=== PATIENT | female | born 1965 | race Caucasian/White ===

== ENCOUNTER 2020-07-18 15:07 | Outpatient (CLI) | payer OTHER, SELFPAY ==
--- NOTE | ~2020-07-18 | XR_ITS ---
XR knee LT 2V DATE: 07/18/2020 15:48 INDICATION: Scleroderma. Chronic generalized left knee pain. No injury. TECHNIQUE: AP and lateral views COMPARISON: 02/13/2014 bilateral knees FINDINGS: No fracture or dislocation, periosteal reaction or bone destruction, joint space narrowing, radiopaque interarticular loose body or chondrocalcinosis or joint effusion. IMPRESSION: No significant abnormality Reviewed, dictated and finalized at location B. IMPRESSION: No significant abnormality
--- NOTE | ~2020-07-18 | XR_ITS ---
XR knee RT 2V DATE: 07/18/2020 15:48 INDICATION: Scleroderma. Chronic generalized knee pain. TECHNIQUE: AP and lateral views COMPARISON: 02/13/2014 bilateral knees FINDINGS: Diffuse osteopenia. No fracture or dislocation or joint effusion. No periosteal reaction or bone destruction. No radiopaq ue interarticular loose body or chondrocalcinosis. Joint spaces are relatively preserved. IMPRESSION: Osteopenia Reviewed, dictated and finalized at location B. IMPRESSION: Osteopenia
--- NOTE | ~2020-07-18 | CT_ITS ---
EXAMINATION:CT lung screening DATE: 07/18/2020 15:29 INDICATION: Personal history of tobacco dependence. Current smoker with 30 pack year history. TECHNIQUE: Computed tomography (CT) of the chest was performed without intravenous contrast. Automate d exposure control and iterative reconstruction technique were employed. The dose-length product (DLP ) was 162.70 mGy-cm. COMPARISON: Chest CT 01/17/2016 FINDINGS: There is mild emphysema. There is mild atelectasis in the inferior lungs. Again seen is a 3 mm nodule in left lower lobe. Again seen is a 4 mm nodule in left upper lobe. Again seen is a 4 mm n odule in right upper lobe. No pleural effusion. The heart size is normal. There are coronary artery c alcifications. No pericardial effusion. There is a chronic 2.4 cm mass in right adrenal gland measuri ng low-attenuation, consistent with an adenoma. There is mild thoracic spondylosis. IMPRESSION: 1. Lung-RADS category 2: Benign appearance or behavior. Continue annual screening with noncontrast lo w-dose chest CT in 12 months. Reviewed, dictated and finalized at location A. IMPRESSION: 1. Lung-RADS category 2: Benign appearance or behavior. Continue annual screeni ng with noncontrast low-dose chest CT in 12 months.
--- NOTE | ~2020-07-18 | XR_ITS ---
XR lumbar spine 2-3V DATE: 07/18/2020 15:48 INDICATION: Chronic generalized low back pain. Scleroderma. TECHNIQUE: AP, lateral, coned lateral lumbosacral views COMPARISON: None FINDINGS: There is severe degenerative disc disease including severe loss of disc space height, vacuu m phenomenon, eventration and spurring at L5-S1. There is mild to moderate degenerative disc disease at the remaining lumbar interspaces. Degenerative change at the apophyseal joints. Diffuse osteopenia. Minimal levoscoliosis of the thoracolumbar spine. No fracture or bone destruction or spondylolisthesis. The lumbar pedicles are intact. The sacroiliac joints appear normal. Status post cholecystectomy. IMPRESSION: Severe degenerative disc disease at L5-S1, mild to moderate degenerative disease at the r emaining interspaces Degenerative change at the facet joints but no spondylolisthesis Osteopenia Mild thoracolumbar levoscoliosis Reviewed, dictated and finalized at location B. IMPRESSION: Severe degenerative disc disease at L5-S1, mild to moderate degener ative disease at the remaining interspaces Degenerative change at the facet joints but no spondylolisthesis Osteopenia Mild thoracolumbar levoscoliosis
--- NOTE | ~2020-07-18 | XR_ITS ---
XR_CERV2-3V_CR DATE: 07/18/2020 15:48 INDICATION: C7 level neck pain, pain between shoulder blades. TECHNIQUE: Lateral, AP, open-mouth, odontoid views COMPARISON: None FINDINGS: Diffuse osteopenia. Straightening of the cervical spine. C1 and C2 are normally aligned and the odontoid process is intact. No fracture or dislocation or locked facet or prevertebral soft tissue swelling. There is moderately prominent loss of disc space height and anterior spurring at C6-7 consistent with moderate degenerative disc disease. IMPRESSION: Straightening Moderately prominent degenerative disc disease at C6-7 Osteopenia Reviewed, dictated and finalized at Location A. Reviewed, dictated and finalized at location B.
== END 2020-07-18 15:08 | disposition home or self-care (01) ==
PROVIDERS: PCP Family Medicine; Referring Provider Internal Medicine Rheumatology; Visit Provider Nurse Practitioner Family
DX: M34.9 Systemic sclerosis, unspecified (principal); M25.50 Pain in unspecified joint; M85.88 Other specified disorders of bone density and structure, other site; I73.00 Raynaud's syndrome without gangrene; Z79.899 Other long term (current) drug therapy; Z87.891 Personal history of nicotine dependence; Z12.2 Encounter for screening for malignant neoplasm of respiratory organs; M51.36 Other intervertebral disc degeneration, lumbar region; M50.323 Other cervical disc degeneration at C6-C7 level; M85.861 Other specified disorders of bone density and structure, right lower leg
CPT/HCPCS: 71271; 72040; 72100; 73560

== ENCOUNTER 2020-11-07 14:49 | Outpatient (CLI) | payer OTHER, SELFPAY ==
--- NOTE | 2020-11-07 15:30 | ECHO_ITS ---
Patient Info Name: Kelsey Armendariz Age: 54 years : 1965 Gender: Female Ht: 62 in Wt: 189 lbs BSA: 1.98 m2 HR: 78 bpm BP: 120 / 74 mmHg Heart Rhythm: Sinus Rhythm Technical Quality: Good Exam Date: 11/07/2020 3:24 PM Exam Location: [facility] Patient Status: Outpatient Admit Date: 11/07/2020 Staff Ordering Physician: ToniaJami MD Safe And Vault Mechanic: Yuliet Ko RDCS Attending Provider: Jami Fam MD Referring Physician: Tonia KIM; Exam Type: CA echo doppler color flow Study Info Indications - RAYNAUDS SYNDROME SCLERODERMA Complete two-dimensional, color flow and Doppler transthoracic echocardiogram is performed. Summary 1. Complete two-dimensional, color flow and Doppler transthoracic echocardiogram is performed. 2. Left ventricular systolic function is normal, estimated at 65-70%. 3. The left ventricular diastolic function is grade II diastolic dysfunction. 4. Borderline pulmonary hypertension, estimated pulmonary arterial systolic pressure is 37 mmHg. 5. No significant valve disease. 6. Normal sinus rhythm. Left Ventricle Left ventricular chamber dimension is normal. Left ventricular systolic function is normal, estimated at 65-70%. There is no increased left ventricular wall thickness. Left ventricular septal wall motion is normal. The left ventricular diastolic function is grade II diastolic dysfunction. Right Ventricle Right ventricular chamber dimension is normal. Right ventricular systolic function is normal. Left Atria Left atrial chamber dimension is normal. Right Atria Right atrial chamber dimension is normal. Aortic Valve The aortic valve is trileaflet. There is no aortic valve sclerosis. There is no aortic valve stenosis. There is no aortic valve regurgitation. Pulmonic Valve The pulmonic valve is normal. There is no pulmonic valve stenosis. There is trace pulmonic regurgitation. Mitral Valve The mitral valve has normal leaflets. There is no mitral valve stenosis. There is trace mitral valve regurgitation. Tricuspid Valve The tricuspid valve leaflets are normal. There is no significant tricuspid valve stenosis. There is trace tricuspid valve regurgitation. Borderline pulmonary hypertension, estimated pulmonary arterial systolic pressure is 37 mmHg. Pericardium/Pleural The pericardium appears normal. There is no pericardial effusion. Inferior Vena Cava Normal inferior vena cava with >50% collapse upon inspiration consistent with Empty right atrial pressure, 10 mmHg. Aorta The aortic root size at the sinus of Valsalva is normal. The prox ascending aorta size is normal. Left Ventricular Outflow Tract Name Value Normal LVOT 2D LVOT Diameter 2.0 cm LVOT Doppler LVOT Peak Gradient 5 mmHg LVOT Mean Gradient 3 mmHg LVOT VTI 23 cm LVOT VTI/AV VTI Ratio 1.0 LVOT Stroke Volume 76 ml LVOT CO 15.7 l/min LVOT CI
== END 2020-11-07 14:50 | disposition home or self-care (01) ==
LOC: ANHCARD 14:53
PROVIDERS: PCP Family Medicine; Visit Provider Internal Medicine Rheumatology
DX: I51.9 Heart disease, unspecified (principal); M34.9 Systemic sclerosis, unspecified
CPT/HCPCS: 73120; 93306

== ENCOUNTER 2020-11-07 16:14 | Outpatient (CLI) | payer OTHER, SELFPAY ==
--- NOTE | ~2020-11-07 | XR_ITS ---
XR hand RT 2V, XR hand LT 2V 11/07/2020 16:34 Indication: Bilateral hand pain Procedure: 2 views each hand Comparison: No prior studies for comparison. Findings: There is mild polyarticular osteoarthritis primarily involving the interphalangeal joints. No fracture, subluxation or dislocation. No significant soft tissue abnormality. No foreign body. Impression: 1: Mild polyarticular osteoarthritis. Reviewed, dictated and finalized at location A. Impression: 1: Mild polyarticular osteoarthritis. Impression: 1: Mild polyarticular osteoarthritis.
== END 2020-11-07 16:15 | disposition home or self-care (01) ==
LOC: ANHIMG 16:18
PROVIDERS: PCP Family Medicine; Visit Provider Internal Medicine Rheumatology
DX: M19.042 Primary osteoarthritis, left hand (principal); M19.041 Primary osteoarthritis, right hand
CPT/HCPCS: 73120

== ENCOUNTER 2021-05-07 15:21 | Outpatient (CLI) | payer OTHER, SELFPAY ==
--- NOTE | ~2021-05-07 | XR_ITS ---
EXAMINATION: XR wrist RT min 3V DATE: 05/07/2021 15:35 INDICATION: Pain near the right thumb. Synovitis/tenosynovitis. TECHNIQUE: Posteroanterior, ulnar deviation, oblique, and lateral views of the right wrist were obtai celia. COMPARISON: 11/07/2020 FINDINGS: Alignment is normal. No fracture. Mild osteoarthritis at the distal radioulnar and a few of the metac arpophalangeal joints. No erosions to suggest an inflammatory arthritis. Soft tissues are unremarkabl e. IMPRESSION: 1. Mild osteoarthritis at the distal radioulnar and a few of the metacarpophalangeal joints. Reviewed, dictated and finalized at location A. COMMUNICATIONS SWITCH TECHNICIAN IMPRESSION: 1. Mild osteoarthritis at the distal radioulnar and a few of the metacarpophala ngeal joints.
== END 2021-05-07 15:22 | disposition home or self-care (01) ==
PROVIDERS: PCP Family Medicine; Visit Provider Nurse Practitioner Adult Health
DX: M65.9 Synovitis and tenosynovitis, unspecified (principal); M19.031 Primary osteoarthritis, right wrist
CPT/HCPCS: 73110

== ENCOUNTER 2021-06-04 14:18 | Outpatient (CLI) | payer OTHER, SELFPAY ==
--- NOTE | 2021-06-04 16:30 | P.PCNPFT_ITS ---
PFT Procedure Performed PFT Procedure Performed Plethysmography (Lung Vol) Diffusing Cap (DLCO) Flow Vol Loop Spirometry w/o Bronchodil PFT Interpretation This is a pulmonary function test with spirometry, plethysmography and diffusing capacity. The test was performed and results interpreted in accordance with the 2019 and 2005 ATS/ERS Task Force guidelines respectively using the Global Lung Function Initiative-2012 reference equations. Patient demonstrated good effort and cooperation. Reproducibility criteria were met. The quality of the spirometry maneuver was Grade A. Findings: Spirometry: There is decreased maximal expiratory airflow at low lung volumes with a concaved expiratory flow tracing. the contour the inspiratory flow tracing is normal. The FVC is 2.73 L, 90% predicted. The FEV1 is 1.74 L, 72% predicted. The FEV1: FVC ratio 64%. Plethysmography: The total lung capacity is 4.71 L, 100% predicted. The functional residual capacity is 2.52 L, 95% predicted. The residual volume is 1.97 L, 110% predicted. Diffusing capacity: The diffusion capacity unadjusted for hemoglobin and car boxyhemoglobin is 10.9, 51% predicted. The diffusing capacity adjusted for alveolar volume is 3.17 L, 69% predicted. In comparison to previous pulmonary function test on 10/13/2018 the pre broncho dilator FVC is unchanged from 2.83 L to 2.73 L. The pre bronchodilator FEV1 is unchanged from 1.99 L to 1.74 L. The total lung capacity is unchanged from 4.69 L to 4.71 L. The functional residual capacity is unchanged from 2.58 L to 2.52 L. The residual volume is unchanged from 1.86 L to 1.97 L. The diffusing capacity unadjusted for hemoglobin and carboxyhemoglobin is decreased from 14.7 to 10.7. The diffusing capacity adjusted for alveolar volume is unchanged from 3.35 to 3.17. Impression: There is a mild obstructive abnormality. The lung volumes are normal. The diffusing capacity unadjusted for hemoglobin is moderately decreased and remains mildly decreased when adjusted for alveolar volume. In comparison to prior pulmonary function testing on 10/13/2018, there has been a greater than anticipated time dependent decrease in the diffusing capacity unadjusted for hemoglobin and carboxyhemoglobin with no significant change in the FVC, FEV1, total lung capacity, functional residual capacity, residual volume or diffusion capacity adjusted for alveolar volume. Clinical correlation is recommended.
== END 2021-06-04 14:19 | disposition home or self-care (01) ==
LOC: ANHPFT 14:21
PROVIDERS: PCP Family Medicine; Visit Provider Internal Medicine Rheumatology
DX: M34.9 Systemic sclerosis, unspecified (principal); R94.2 Abnormal results of pulmonary function studies
CPT/HCPCS: 94375; 94726; 94729

== ENCOUNTER 2021-08-01 13:16 | Outpatient (CLI) | payer OTHER, SELFPAY ==
--- NOTE | ~2021-08-01 | CT_ITS ---
EXAMINATION: CT lung screening DATE: 08/01/2021 13:40 INDICATION: Z87.891 - Personal history of nicotine dependence TECHNIQUE: Computed tomography (CT) of the chest was performed without intravenous contrast. Addition al 3D reconstructions utilizing coronal maximum intensity projection (MIP) were performed. Automated exposure control and iterative reconstruction technique were employed. The dose-length product was 11 4.98 mGy-cm. COMPARISON: 07/18/2020 FINDINGS: Mild emphysema. Linear discoid atelectasis along the basilar lower lobes. Unchanged elongated 3 mm in the anterior infrahilar left lower lobe and 3 mm nodules in the anteroinferior left upper lobe. Unch anged 4 mm groundglass nodule in the posterior segment of the left upper lobe. No new or enlarging pu lmonary nodules. No pneumonia, pulmonary edema or pleural effusion. Heart size is normal. Atheroscler otic coronary artery calcific location. No pericardial or pleural effusion. Thoracic aorta is normal in caliber. No pathologically enlarged thoracic lymphadenopathy. Cholecystectomy clips the gallbladde r fossa. Unchanged 2.3 cm low-attenuation right adrenal adenoma. Visualized upper abdomen is otherwi se unremarkable. Mild to moderate thoracic spondylosis. IMPRESSION: 1. . Lung-RADS category 2: Benign appearance or behavior. Continue annual screening with noncontrast low-dose chest CT in 12 months. Reviewed, dictated and finalized at location B. IMPRESSION: 1. . Lung-RADS category 2: Benign appearance or behavior. Continue annual scree toshia with noncontrast low-dose chest CT in 12 months.
== END 2021-08-01 13:17 | disposition home or self-care (01) ==
PROVIDERS: PCP Family Medicine; Visit Provider Physician Assistant
DX: Z12.2 Encounter for screening for malignant neoplasm of respiratory organs (principal); Z87.891 Personal history of nicotine dependence
CPT/HCPCS: 71271

== ENCOUNTER 2021-09-17 12:30 | Outpatient (RCR) | payer OTHER, SELFPAY ==
--- NOTE | 2021-06-26 16:06 | OTOPEVAL ---
OCCUPATIONAL THERAPY INITIAL EVALUATION REPORT 06/26/21 Thank you for referring Kelsey Armendariz to [facility].? The patient is scheduled to be seen for therapy? 1x/week for 4 weeks. Please review, sign, date and return this plan of care ALBERTO. I agree with and certify that the following plan of care is medically necessary. Referring Physician Date Referring Provider: Andrew Perry MD *OT Outpatient Evaluation Start: 06/26/21 13:12 Therapy Assessment Status Assessment Status Assessment Status Evaluation Evaluation Information Problem Diagnosis Right wrist pain Onset Mar 2021 Subjective Information Patient reports right wrist Query Text:As Reported By Patient/ pain, pointing to her 1st Family dorsal compartment. She reports pain with gripping, lifting, and opening jars. She has been wearing a neoprene wrist brace. The thumb is free in the brace. Pain Assessment Timing of Pain Assessment Timing of Pain Assessment Assessment Pain Scale Pain Scale Used Numeric (1 - 10) Self Report Pain Assessment Right Wrist(s) Reported Pain Level 1 Pain Description Aching Lowest Pain Intensity 0 Greatest Pain Intensity 9 Pain Score Pain Score 1: Self Report Interventions Used Interventions Used By Clinicians Education,Splinting Upper Extremity Range of Motion General Upper Extremity Range of Motion Reason Not Measured WFL/Left Gross Upper Extremity Range of Motion (+) pain with thumb maximal Comments flexion and extension Special Tests-Upper Extremity Wrist Special Tests Manjit's Positive Right Splint/Brace/Cast Assessment Splint and Bracing Assessment Right Thumb Fabrication Clinician Made Splint/Brace/Cast Type Thumb Spica (Long) Reason For Splint/Brace/Cast Optimal Positioning,Pain Management,Support Joint/ Muscle Schedule As Tolerated Schedule Comments Patient to remove for bathing and exercises. Site Condition Intact Tolerance Tolerates Well Manual Therapy Manual Therapy Treatment Comments Educated patient on use of Query Text:Include Technique and heat, massage, and ice for her Result of Technique home program. OT Clinical Summary OT Clinical Summary Patient referred to outpatient hand therapy with signs and symptoms of De Quervain's tenosynovitis. Today a well fitt
--- NOTE | 2021-07-08 09:59 | PCOTNOTE ---
Patient called & cancelled scheduled appointment this date due to not feeling well.
--- NOTE | 2021-07-26 14:35 | OTOPEVAL ---
OCCUPATIONAL THERAPY RE-EVALUATION REPORT 07/26/21 Patient presents for OT evaluation of right wrist pain, consistent with De Quervain's tenosynovitis. She has been immobilizing the wrist x4 weeks, however she had increased pain with wearing custom, thermoplastic thumb spica. This unfortunately set us back due to increased pain and tenderness at the inflammed area. She has been compliant with all materials. She continues to have reports of severe pain and limited functional use of the right hand. She plans to follow up with an orthopedic MD for a steroid injection and we will continue therapy visits to help facilitate reduced pain, improved ROM, and return to functional use. Plan to increase to 2x/week as 1x/week was not meeting her needs pain-kahn. Thank you for referring Kelsey Armendariz to [facility].? The patient is scheduled to be seen for therapy? 2x/week for 4 weeks. Please review, sign, date and return this plan of care ALBERTO. I agree with and certify that the following plan of care is medically necessary. Referring Physician Date Referring Provider: Andrew Perry MD Re-Evaluation Information Problem Diagnosis Right wrist pain Onset Mar 2021 Subjective Information Patient reports no functional Query Text:As Reported By Patient/ changes since beginning Family therapy. She has been wearing a neoprene wrist brace, could not tolerate a thermoplastic brace due to discomfort. She is seeing an orthopedic MD next week and will be requesting a steroid injection. QuickDash 50% Pain Assessment Timing of Pain Assessment Timing of Pain Assessment Re-assessment Pain Scale Pain Scale Used Numeric (1 - 10) Self Report Pain Assessment Right Wrist(s) Reported Pain Level 2 Pain Description Aching,Soreness Lowest Pain Intensity 1 Greatest Pain Intensity 9 Pain Aggravating Factors Exercise/Activity,Lifting Pain Score Pain Score 2: Self Report Additional Pain Score Comments Patient states when she uses her right arm to lift items she will intermittently get 9 /10 shooting pains. On a regular basis she has 2/10 at rest. Interventions Used Interventions Used By Clinicians Education,Exercise,Manual Therapy Techniques,Paraffin Pain Relief Interventions Used By Heat,Ice Patient Other Alleviating Interventions Biofreeze, Voltaren Upper Extremity Range of Motion Wrist Range of Motion Right Wrist Flexion - Active 65 Wrist Extension - Active 40 Wrist Radial Deviation - Active 10 Wrist Ulnar Deviation - Active 25 Wrist Range of Motion Comments (+)
--- NOTE | 2021-08-15 11:00 | PCOTNOTE ---
Patient called & cancelled scheduled appointment this date, stating she just can't make it today .
--- NOTE | 2021-08-30 12:54 | OTOPEVAL ---
OCCUPATIONAL THERAPY RE-EVALUATION AND POC UPDATE 08/30/21 Patient presents for OT evaluation of right wrist pain, consistent with De Quervain's tenosynovitis. She has been immobilizing the wrist x9 weeks and also had a steroid injection. At this time she is having significantly less pain with functional use. She is tolerating progressive strengthening, but continues to have residual weakness that limits her ability to wean off of the immobilizer and return to normal hand use. Continued skilled OT indicated to progress functional strengthening as tolerated. Thank you for referring Kelsey Armendariz to [facility]Note 3[facility]? The patient is scheduled to be seen for therapy? 1x/week for 4 weeks. Please review, sign, date and return this plan of care ALBERTO. I agree with and certify that the following plan of care is medically necessary. Referring Physician Date Referring Provider: Andrew Perry MD *OT Outpatient Re-Evaluation Start: 06/26/21 13:12 Diagnosis Right wrist pain Onset Mar 2021 Subjective Information Patient reports that since Query Text:As Reported By Patient/ receiving a steroid injection Family her pain has been significantly less. She walked in today with no pain. We have been able to do more exercises in the clinic and she is tolerating more activity at home with and without the wrist immobilizer on. She states that light tasks are much easier, but reports continued difficulties with heavier tasks such as opening a jar or lifting a gallon of milk. QuickDash improved from 50% to 27.3% Pain Assessment Timing of Pain Assessment Timing of Pain Assessment Re-assessment Pain Scale Pain Scale Used Numeric (1 - 10) Self Report Pain Assessment Right Wrist(s) Reported Pain Level 0 Lowest Pain Intensity 0 Greatest Pain Intensity 8 Pain Score Pain Score 0: Self Report Additional Pain Score Comments Patient states she will get quick zings of pain if she lifts items, such as a gallon of milk, utilizing radial deviation with resistance. She states that the pain subsides much quicker than it did before. Otherwise she typically has no pain at rest or very low pain, rating 1-2/ 10. Interventions Used Interventions Used By Clinicians
--- NOTE | 2021-09-26 14:32 | PCOTNOTE ---
This treatment is being continued on visit number [id number]. Please see documentation on both accounts to view progress. Completed interventions, outcomes, and problems have been marked as Inactive to facilitate the copying of the Care plan routine for recurring accounts.
== END 2021-09-24 08:21 | disposition home or self-care (01) ==
LOC: ANHOT 12:30
PROVIDERS: PCP Family Medicine; Visit Provider Family Medicine
DX: M25.531 Pain in right wrist (principal)
CPT/HCPCS: 97018; 97035; 97110; 97140; 97165; L3806

== ENCOUNTER 2021-09-27 06:49 | Outpatient (RCR) | payer OTHER, SELFPAY ==
--- NOTE | 2021-09-26 14:33 | PCOTNOTE ---
The treatment documented on this account is a continuation of the treatment documented on visit number [id number]. Please see documentation on both accounts to view progress. The Plan of Care has been transitioned and updated within the new V#. I have addressed and agree with the discipline specific Problems, Interventions, and Goals for the current certification period. Completed interventions, outcomes, and problems have been marked as Inactive to facilitate the copying of the Care plan routine for recurring accounts.
--- NOTE | 2021-09-27 11:46 | OTOPEVAL ---
OCCUPATIONAL THERAPY RE-EVALUATION AND D/C NOTE 09/26/21 Patient presents for OT evaluation of right wrist pain, consistent with De Quervain's tenosynovitis. She has been immobilizing the wrist and also had a steroid injection. At this time she is having significantly less pain with functional use. She is tolerating progressive strengthening and is only wearing her immobilizer with any heavy lifting. At this time she feels confident in being able to wean out of her brace independently as she gets stronger with her HEP. No further skilled OT indicated at this time. Thank you for referring Kelsey Armendariz to [facility]. Please review, sign, date and return this D/C Note ALBERTO. I agree with and certify that the following plan of care is medically necessary. Referring Physician Date Referring Provider: Andrew Perry MD Re-Evaluation Information Problem Diagnosis Right wrist pain Onset Mar 2021 Subjective Information Patient reporting less pain Query Text:As Reported By Patient/ and is weaning out of the Family immobilizer. She only wears the immobilizer when driving or doing any heavy lifting. She continues to be unable to open a jar due to pain and fear of reinjuring the area. Does get some residual soreness after using her hand at work. QuickDash improved from 27.3% to 25% Pain Assessment Timing of Pain Assessment Timing of Pain Assessment Re-assessment Pain Scale Pain Scale Used Numeric (1 - 10) Self Report Pain Assessment Right Wrist(s) Reported Pain Level 0 Lowest Pain Intensity 0 Greatest Pain Intensity 2 Pain Score Pain Score 0: Self Report Additional Pain Score Comments Regularly has no pain. Does intermittently get up to a 2/10. Gets a quick zing of pain, up to 8/10, but quickly subsides, when trying to open a jar. Upper Extremity Range of Motion Wrist Range of Motion Right Wrist Flexion - Active 65 Wrist Extension - Active 75 Wrist Radial Deviation - Active 25 Wrist Ulnar Deviation - Active 35 Wrist Range of Motion Comments Wrist active ROM returned to normal limits. Hand Patient Accounts Clerk/Pinch Strength Assessment Hand Right Patient Accounts Clerk Strength (lbs) 59 Hand Patient Accounts Clerk/Pinch Strength Comments Improved from 54 lbs. 9-Hole Peg Hand Test Hand Right Scoring Time (seconds) 32 Comments Improved from 35 seconds Upper Extremity Exercise Wrist Exercise Righ
== END 2021-12-11 10:51 | disposition home or self-care (01) ==
LOC: ANHOT 06:49
PROVIDERS: PCP Family Medicine; Visit Provider Family Medicine
DX: M25.531 Pain in right wrist (principal)
CPT/HCPCS: 97110

== ENCOUNTER 2021-10-08 16:02 | Outpatient (CLI) | payer OTHER, SELFPAY ==
--- NOTE | ~2021-10-08 | MM_ITS ---
EXAMINATION: MM screening nick BI w link HISTORY: Screening mammogram TECHNIQUE: Craniocaudal and mediolateral oblique 3-D tomosynthesis images were obtained and synthetic 2-D images were generated. CAD analysis was submitted and interpreted. COMPARISON: 07/29/2018, 01/19/2015 BREAST PARENCHYMAL COMPOSITION: There are scattered areas of fibroglandular density. FINDINGS: Again noted is stable focal asymmetry in the upper outer quadrant of the left breast. There is no suspicious mass, calcification, or architectural distortion to suggest malignancy in either br east. There has been no suspicious interval change. IMPRESSION: 1. No mammographic evidence of malignancy. 2. Recommend routine screening mammography in one year. BI-RADS Category 2: Benign finding(s). Reviewed, dictated and finalized at location A.
--- NOTE | ~2021-10-08 | DEXA_ITS ---
Bone Density Report Name: CHRISTOPH GO Age: 55 Sex: Female Ethnicity: White Date of : 1965 Indication: postmenopausal; screening for osteoporosis; height loss; asthma or emphysema; Referring Provider: CHEPE, DANIEL Benjamin Study: Bone densitometry was performed. Exam Date: October 08, 2021 Accession number: [id number] Bone Density: Region BMD T-score Z-score Classification AP Spine(L1-L4) 0.837 -1.9 -0.7 Osteopenia Femoral Neck (Left) 0.621 -2.1 -0.9 Osteopenia Total Hip (Left) 0.806 -1.1 -0.3 Osteopenia Femoral Neck (Right) 0.618 -2.1 -1.0 Osteopenia Total Hip (Right) 0.770 -1.4 -0.6 Osteopenia Total Hip Mean 0.788 -1.3 -0.5 Osteopenia World Health Organization criteria for BMD impression classify patients as: Normal (T-score at or above -1.0), Osteopenia (T-score between -1.0 and -2.5), or Osteoporosis (T-score at or below -2.5). 10-year Fracture Risk(1): Major Osteoporotic Fracture 8.0% Hip Fracture 1.5% Reported Risk Factors: [place] (), Neck BMD=0.621, BMI=37.0, smoking (1) FRAX(R) Version 3.08. Fracture probability calculated for an untreated patient. Fracture probability may be lower if the patient has received treatment. Clinical Information Provided by Patient: Smokes Has used the following medications: Vitamin D Has the following medical conditions: Asthma or Emphysema Patient maximum height was 62 Menopause Age: 47 No regular weight bearing exercise Drinks caffeinated beverages Onset of menses at age 11 Number of children 0 Impression: The patient has low bone mass, based on the Left Femoral Neck T-score. The patient has an estimated ten-year risk of hip fracture of 1.5% and an estimated ten-year risk of major fracture of 8%, based on the WHO FRAX algorithm. The patient has risk factors, including: smoking. Discussion: BONE DENSITY IS LOW AT ONE OR MORE SKELETAL SITES. This patient's lowest T-score is low at one or more skeletal sites. It meets the World Health Organization's (WHO) criteria for ?low bone mass? (T-score between -1.0 and -2.5). The patient's 10-year risk of fracture as calculated by FRAX is less than the threshold where pharmacological therapy is recommended by the National Osteoporosis Foundation (NOF). However, all treatment decisions require clinical judgment and consideration of individual patient factors, including patient preferences, comorbidities, previous drug use, risk factors not captured in the FRAX model (e.g., frailty, falls, vitamin D deficiency, increased bone turnover, interval significant decline in bone density) and possible under or overestimation of fracture risk by FRAX. The patient should follow a healthful lifestyle (good nutrition with adequate calcium and vitamin D, and appropriate weight-bearing exercise). Fo
== END 2021-10-08 16:03 | disposition home or self-care (01) ==
PROVIDERS: PCP Family Medicine; Visit Provider Internal Medicine Rheumatology
DX: Z12.31 Encounter for screening mammogram for malignant neoplasm of breast (principal); M85.88 Other specified disorders of bone density and structure, other site; M85.852 Other specified disorders of bone density and structure, left thigh; M85.851 Other specified disorders of bone density and structure, right thigh
CPT/HCPCS: 77063; 77067; 77080

== ENCOUNTER 2022-06-11 02:24 | Day surgery (SDC) | payer MEDICARE, MEDICAID, SELFPAY ==
[2022-02-25 11:13] VITALS: BMI 35.7
[2022-04-18 13:39] VITALS: BMI 35.7
--- NOTE | 2022-05-02 10:27 | PC.NURSE ---
pt called endoscopy department 3.. later afternoon and left a VM asking if she could have something to drink before her procedure. pt was called back 3.. around 7am and was left a voicemail about anesthesia protocols and to callback if necessary. pt was then called around 10am to see if she could come in earlier. pt was unhappy that she was not contacted sooner and could not have something to drink. pt then stated she wanted to reschedule. pt given office number to contact.
[2022-05-27 13:31] VITALS: BMI 35.7
[2022-06-11 10:23] VITALS: BP 131/74; PULSE 83; RESP 17; TEMP 36; O2SAT 98; BMI 36.4
--- NOTE | 2022-06-11 10:32 | WPDANESEPPF ---
Anes - Initial Pre Proc Eval Procedure: Operation Date: 06/11/22 11:30 Proposed Procedures p Esophagogastroduodenoscopy - Rachid Boogie MD Date/Time: 06/11/22 10:32 Surgeon: Rachid Boogie MD Pre Op Diagnosis: Baretts' esophagus Patient Data Age: 56 Gender: F Height: 1.57 m Weight: 90.4 kg Last Vital Signs Temp 36.0 C L 06/11/22 10:23 Pulse 83 06/11/22 10:23 Resp 17 06/11/22 10:23 BP 131/74 06/11/22 10:23 Pulse Ox 98 06/11/22 10:23 O2 Del Method Room Air 06/11/22 10:23 Allergies Allergy/AdvReac Type Severity Reaction Status Date / Time No Known Allergies Allergy Verified 06/11/22 10:22 Home Medications Medication Instructions Recorded Confirmed Type artifi.tears(hypromellose)(PF) 0.3 1 drop ophthalmic (eye) DAILY PRN 03/01/19 06/11/22 History % eye drops Dry Eyes atorvastatin 20 mg tablet 20 mg PO DAILY 03/01/19 06/11/22 History cyclosporine 0.05 % eye drops in a 1 drop ophthalmic (eye) Q12H 03/01/19 06/11/22 History dropperette (Restasis) diazepam 2 mg tablet 2 mg PO TID PRN Anxiety 03/01/19 06/11/22 History ergocalciferol (vitamin D2) 50,000 500,000 unit PO WEEKLY 03/01/19 06/11/22 History unit tablet meloxicam 15 mg tablet 15 mg PO DAILY 03/01/19 06/11/22 History montelukast 10 mg tablet 10 mg PO DAILY 03/01/19 06/11/22 History cyclobenzaprine 10 mg tablet 10 mg PO .COMPLEX 12/03/21 06/11/22 History omeprazole 20 mg capsule,delayed 40 mg PO DAILY 12/03/21 06/11/22 History release albuterol sulfate 90 mcg/actuation See Rx Instructions .Route 03/12/22 06/11/22 Rx aerosol inhaler .COMPLEX #8.5 grams budesonide-formoterol HFA 160 See Rx Instructions .Route 05/30/22 06/11/22 Rx mcg-4.5 mcg/actuation aerosol .COMPLEX #10.2 grams inhaler (Symbicort) Other studies: Echo/MUGA:: 11/07/21 Echo: EF 65-70%, grade II diastolic dysfunction. Echo (EF 60-65%, grade III diastolic dysfunction (E/E' 9), mild LAE, mild MR, trace AI/TR.) - 09/07/2017 Electrophysiology:: EKG (Sinus rhythm, borderline T wave in ant/inf leads) - 10/13/2018 Stress Tests:: 12/09/18 Stress echo: Negative for ischemia, however achieved only 79% MPHR for age group; exercised for 3 min, 33 seconds. Patient hx anesthesia problems: none Family hx anesthesia problems: none Results Review: All pre-operative results and documents have been reviewed as part of the pre-operative evaluation. [facility] Past Medical History Medical History Arthritis Asthma Alejandra esophagus Chronically dry eyes Colon cancer screening COPD (chronic obstructive pulmonary disease) Elevated lipids GERD (gastroesophageal reflux disease) Headache, migraine History of trigger finger Scleroderma TMJ (temporomandibular joint syndrome) Surgical History Surgical History History of cholecystectomy Family History Family History Sibling Family history of kidney stones Father Family history of malignant neoplasm of esophagus Other Family history of chronic obstructive pulmonary disease Social History Social History Smoking packs per day: 0.5 Smoking cigarettes per day: 10.0 Years smoked: 35 Smoking pack-years: 17.50 Smoking status: Current every day smoker Alcohol intake: current Alcohol use details: social Substance use: never Substance use type: does not use Living arrangements: with family Anes - Evobed Final PreProcedure Day of Procedure 06/11/22 10:32 Patient weight: obese Heart: regular rate and rhythm Lungs: clear to auscultation and normal air movement Airway: Mallampati scale class II Neurological: alert and oriented Last oral intake: >/= 8 hours ASA classification: III Emergent: no Anesthetic plan: proceed Anesthesia type and
[2022-06-11] MEDS: LACTATED RINGERS 1,000 ML 150 ML IV CONT (10:33)
--- NOTE | 2022-06-11 10:42 | PM.HPGS ---
History of Present Illness History of Present Illness Consent: Risks, benefits, and alternatives have been discussed and questions answered. Patient agrees to proceed with procedure. Chief complaint: Baretts' esophagus Narrative: Kelsey Armendariz is a 56 year old female with miller's on omeprazole for years, last egd by Dr Bledsoe over 3 years ago, for the most part well controlled with ppi. Review of Systems Constitutional: Constitutional: Denies headache(s) and Denies weakness Eyes: Eyes: Denies blurry vision ENT: Reports Normal hearing present, Denies headache(s) and Denies neck pain Cardiovascular: Cardiovascular: Denies chest pain and Denies dyspnea Respiratory: Respiratory: Denies dyspnea Gastrointestinal: Gastrointestinal: Reports no additional gastrointestinal complaints Genitourinary: Genitourinary: Denies dysuria Musculoskeletal: Musculoskeletal: Denies neck pain Integumentary/Breasts: Skin/Breast: Denies dry skin Neurologic: Reports Normal hearing present, Denies headache(s) and Denies weakness Psychiatric: Psychiatric: Denies anxiety Endocrine: Endocrine: Denies change in body appearance Hematologic/Lymphatic: Hematologic/Lymphatic: Denies easy bleeding Allergic/Immunologic: Allergic/Immunologic: Denies urticaria PMFSH Past Medical History Medical History Arthritis Asthma Miller esophagus Chronically dry eyes Colon cancer screening COPD (chronic obstructive pulmonary disease) Elevated lipids GERD (gastroesophageal reflux disease) Headache, migraine History of trigger finger Scleroderma TMJ (temporomandibular joint syndrome) Surgical History Surgical History History of cholecystectomy Family History Family History Sibling Family history of kidney stones Father Family history of malignant neoplasm of esophagus Other Family history of chronic obstructive pulmonary disease Social History Social History Smoking packs per day: 0.5 Smoking cigarettes per day: 10.0 Years smoked: 35 Smoking pack-years: 17.50 Smoking status: Current every day smoker Alcohol intake: current Alcohol use details: social Substance use: never Substance use type: does not use Living arrangements: with family Meds Home Medications and Allergies Home Medications Medication Instructions Recorded Confirmed Type artifi.tears(hypromellose)(PF) 0.3 1 drop ophthalmic (eye) DAILY PRN 03/01/19 06/11/22 History % eye drops Dry Eyes atorvastatin 20 mg tablet 20 mg PO DAILY 03/01/19 06/11/22 History cyclosporine 0.05 % eye drops in a 1 drop ophthalmic (eye) Q12H 03/01/19 06/11/22 History dropperette (Restasis) diazepam 2 mg tablet 2 mg PO TID PRN Anxiety 03/01/19 06/11/22 History ergocalciferol (vitamin D2) 50,000 500,000 unit PO WEEKLY 03/01/19 06/11/22 History unit tablet meloxicam 15 mg tablet 15 mg PO DAILY 03/01/19 06/11/22 History montelukast 10 mg tablet 10 mg PO DAILY 03/01/19 06/11/22 History cyclobenzaprine 10 mg tablet 10 mg PO .COMPLEX 12/03/21 06/11/22 History omeprazole 20 mg capsule,delayed 40 mg PO DAILY 12/03/21 06/11/22 History release albuterol sulfate 90 mcg/actuation See Rx Instructions .Route 03/12/22 06/11/22 Rx aerosol inhaler .COMPLEX #8.5 grams budesonide-formoterol HFA 160 See Rx Instructions .Route 05/30/22 06/11/22 Rx mcg-4.5 mcg/actuation aerosol .COMPLEX #10.2 grams inhaler (Symbicort) Allergies Allergy/AdvReac Type Severity Reaction Status Date / Time No Known Allergies Allergy Verified 06/11/22 10:22 Vital Signs Vital Signs - 24 hr 06/11/22 10:23 Temperature 96.8 F L Pulse Rate 83 Respiratory Rate 17 Blood Pressure 131/74 Pulse Oximetry 98 Oxygen Delivery Room Air Exam Const:
[2022-06-11 10:53] VITALS: BP 139/79; PULSE 85; RESP 28; O2SAT 90
[2022-06-11 11:03] VITALS: BP 111/67; PULSE 81; RESP 22; O2SAT 96
[2022-06-11 11:13] VITALS: BP 97/65; PULSE 71; RESP 21; O2SAT 95
== END 2022-06-11 11:29 | disposition home or self-care (01) ==
PROVIDERS: PCP Family Medicine; Visit Provider Internal Medicine Gastroenterology
PROC: 0DJ08ZZ Inspection of Upper Intestinal Tract, Via Natural or Artificial Opening Endoscopic (ICD-10-PCS; CPT 43235; principal; 2022-06-11 11:30)
DX: K22.70 Barrett's esophagus without dysplasia (principal); K21.9 Gastro-esophageal reflux disease without esophagitis; K44.9 Diaphragmatic hernia without obstruction or gangrene; J44.9 Chronic obstructive pulmonary disease, unspecified; Z79.51 Long term (current) use of inhaled steroids; F17.210 Nicotine dependence, cigarettes, uncomplicated; E66.9 Obesity, unspecified; Z68.36 Body mass index [BMI] 36.0-36.9, adult
CPT/HCPCS: 43239; 88305; J2704; J7120

== ENCOUNTER 2022-10-28 09:14 | Outpatient (CLI) | payer MEDICARE, MEDICAID, SELFPAY ==
--- NOTE | ~2022-10-28 | MM_ITS ---
EXAMINATION: MM screening [facility] BI w link HISTORY: Screening mammogram TECHNIQUE: Craniocaudal and mediolateral oblique 3-D tomosynthesis images were obtained and synthetic 2-D images were generated. CAD analysis was submitted and interpreted. COMPARISON: 10/08/2021, 07/29/2018, 01/19/2015 BREAST PARENCHYMAL COMPOSITION: There are scattered areas of fibroglandular density. FINDINGS: No suspicious mass, calcification, or architectural distortion are identified in either jessica ast to suggest malignancy. There has been no suspicious interval change. IMPRESSION: 1. No mammographic evidence of malignancy. 2. Recommend routine screening mammography in one year. BI-RADS Category 1: Negative Reviewed, dictated and finalized at location A.
== END 2022-10-28 09:15 | disposition home or self-care (01) ==
PROVIDERS: PCP Family Medicine; Visit Provider Nurse Practitioner Adult Health
DX: Z12.31 Encounter for screening mammogram for malignant neoplasm of breast (principal)
CPT/HCPCS: 77063; 77067

== ENCOUNTER 2022-10-30 12:48 | Outpatient (CLI) | payer MEDICARE, MEDICAID, SELFPAY ==
--- NOTE | ~2022-10-30 | CT_ITS ---
CT Scan of the Chest without Contrast: Clinical Indication: Lung cancer screening, personal history of nicotine dependence Technique: Contiguous sections were acquired throughout the chest without intravenous contrast. Dose reduction technique was used on this scan by utilizing automated exposure control and iterative recon struction technique. The dose-length product (DLP) was 145.64 mGy-cm. COMPARISON: 08/01/2021 and 07/18/2020 Findings: There is no evidence of any significant mediastinal, hilar or axillary lymphadenopathy. Coronary ash ry calcifications are noted. There is no evidence of pleural or pericardial effusion. Stable subcentimeter pulmonary nodules noted. Probable mild emphysema. Images through the upper abdomen reveal stable right adrenal adenoma. Impression: Lung RADS 2: Benign appearance. 12 month follow-up screening CT advised. Reviewed, dictated and finalized at [facility]. Impression: Lung RADS 2: Benign appearance. 12 month follow-up screening CT advised.
== END 2022-10-30 12:49 | disposition home or self-care (01) ==
LOC: ANHIMG 12:52
PROVIDERS: PCP Family Medicine; Visit Provider Physician Assistant
DX: Z12.2 Encounter for screening for malignant neoplasm of respiratory organs (principal); Z87.891 Personal history of nicotine dependence
CPT/HCPCS: 71271

== ENCOUNTER 2023-01-05 13:00 | Outpatient (CLI) | payer MEDICARE, MEDICAID, SELFPAY ==
--- NOTE | 2023-01-05 16:22 | WPDPFTINT ---
PFT Procedure Performed PFT Procedure Performed Flow Vol Loop Spirometry w/o Bronchodil PFT Interpretation This is a pulmonary function test with spirometry. The test was performed and results interpreted in accordance with the 2019 and 2005 ATS/ERS Task Force guidelines respectively using the Global Lung Function Initiative-2012 reference equations. Patient demonstrated good effort and cooperation. Reproducibility criteria were met. The quality of the spirometry maneuver was Grade A. Findings: Spirometry: There is decreased maximal expiratory airflow at all lung volumes with concave expiratory flow tracing. The contour the inspiratory flow tracing is normal. The FVC is 2.59 L, 87% predicted. The FEV1 is 1.61 L, 68% predicted. The FEV1: FVC ratio 62%. In comparison to prior spirometry on 06/04/2021 the FVC is unchanged from 2.73 L to 2.59 L. The FEV1 is unchanged from 1.74 L to 1.61 L. Impression: There is a moderate obstructive abnormality. A concurrent restrictive abnormality cannot be excluded as lung volumes were not measured. In comparison to prior spirometry on 06/04/2021 there has been no significant change in the FVC or FEV1. Clinical correlation is recommended.
== END 2023-01-05 13:01 | disposition home or self-care (01) ==
LOC: ANHPFT 13:02
PROVIDERS: PCP Family Medicine; Visit Provider Nurse Practitioner Adult Health
DX: J44.9 Chronic obstructive pulmonary disease, unspecified (principal); R06.09 Other forms of dyspnea; R94.2 Abnormal results of pulmonary function studies
CPT/HCPCS: 94375

== ENCOUNTER 2023-05-29 14:43 | Outpatient (CLI) | payer MEDICARE, MEDICAID, SELFPAY ==
--- NOTE | 2023-05-29 | ECHO_ITS ---
Patient Info Name: Kelsey Armendariz Age: 57 years : 1965 Gender: Female Ht: 62 in Wt: 185 lbs BSA: 1.95 m2 HR: 82 bpm BP: 128 / 86 mmHg Technical Quality: Good Exam Date: 05/29/2023 2:57 PM Exam Location: Echo Lab Patient Status: Outpatient Admit Date: 05/29/2023 Staff Ordering Physician: ToniaJami MD Shellacker: Alina Cleary RDCS Attending Provider: Loree*Jami MD Referring Physician: Tonia KIM; Exam Type: CA echo doppler color flow Study Info Indications - scleroderma Complete two-dimensional, color flow and Doppler transthoracic echocardiogram is performed. Summary 1. Complete two-dimensional, color flow and Doppler transthoracic echocardiogram is performed. 2. Left ventricular chamber dimension is normal. 3. Left ventricular systolic function is normal, estimated at 65-70%. 4. The left ventricular diastolic function is grade I diastolic dysfunction. 5. E/e' 13 is mildly elevated. Left Ventricle E/e' 13 is mildly elevated. Left ventricular chamber dimension is normal. Left ventricular systolic function is normal, estimated at 65-70%. The left ventricular diastolic function is grade I diastolic dysfunction. Right Ventricle Right ventricular chamber dimension is normal. Right ventricular systolic function is normal. Left Atria Left atrial chamber dimension is normal. Right Atria Right atrial chamber dimension is normal. Aortic Valve The aortic valve is trileaflet. There is no aortic valve stenosis. There is no aortic valve regurgitation. Pulmonic Valve There is no pulmonic regurgitation. Mitral Valve There is no mitral valve stenosis. There is no mitral valve regurgitation. Tricuspid Valve There is no tricuspid valve regurgitation. Pericardium/Pleural There is no pericardial effusion. Inferior Vena Cava Normal inferior vena cava with >50% collapse upon inspiration consistent with normal right atrial pressure, 5 mmHg. Aorta The aortic root size at the sinus of Valsalva is normal. Left Ventricular Outflow Tract Name Value Normal LVOT 2D LVOT Diameter 2.0 cm LVOT Doppler LVOT Peak Gradient 5 mmHg LVOT Mean Gradient 3 mmHg LVOT VTI 23 cm LVOT VTI/AV VTI Ratio 1.0 LVOT Stroke Volume 74 ml LVOT CO 5.2 l/min LVOT CI 2.7 l/min/m2 Pulmonic Valve Name Value Normal RVOT Doppler RVOT Peak Gradient 3 mmHg PV Doppler PV Peak Gradient 3 mmHg Mitral Valve Name Value Normal MV Doppler ----
== END 2023-05-29 14:44 | disposition home or self-care (01) ==
LOC: ANHCARD 14:44
PROVIDERS: PCP Family Medicine; Visit Provider Internal Medicine Rheumatology
DX: M34.9 Systemic sclerosis, unspecified (principal); M54.2 Cervicalgia; I73.00 Raynaud's syndrome without gangrene; G89.29 Other chronic pain; M47.812 Spondylosis without myelopathy or radiculopathy, cervical region; M47.816 Spondylosis without myelopathy or radiculopathy, lumbar region; R07.9 Chest pain, unspecified
CPT/HCPCS: 93306

== ENCOUNTER 2023-09-08 14:50 | Outpatient (CLI) | payer MEDICARE, MEDICAID, SELFPAY ==
--- NOTE | 2023-09-08 16:02 | WPDPFTINT ---
PFT Procedure Performed PFT Procedure Performed Spirometry with Pre/Post Bronchodilator Plethysmography (Lung Vol) Diffusing Cap (DLCO) Flow Vol Loop PFT Interpretation This is a pulmonary function test with pre and post-bronchodilator spirometry, plethysmography and diffusing capacity. The test was performed and results interpreted in accordance with the 2019 and 2005 ATS/ERS Task Force guidelines respectively using the Global Lung Function Initiative-2012 reference equations. Patient demonstrated good effort and cooperation. Reproducibility criteria were met. The quality of the pre bronchodilator spirometry maneuver was Grade A and post bronchodilator spirometry maneuver was Grade A. Findings: Spirometry:There is decreased maximal expiratory airflow at low lung volumes with concave expiratory flow tracing. The contour the inspiratory flow tracing is normal. The pre bronchodilator FVC is 2.50 L, 84% predicted. The pre bronchodilator FEV1 is 1.57 L, 66% predicted. The pre bronchodilator FEV1: FVC ratio 63%. The post bronchodilator FVC is 2.62 L, representing a 5% increase. The post bronchodilator FEV1 is 1.66 L, representing a 5% increase. The post bronchodilator FEV1: FVC ratio 63%. Plethysmography: The total lung capacity is 4.80 L, 102% predicted. The functional residual capacity is 2.99 L, 113% predicted. The residual volume is 2.30 L, 125% predicted. Diffusing capacity: The diffusing capacity unadjusted for hemoglobin and carboxyhemoglobin is 12.7, 61% predicted. The diffusing capacity adjusted for alveolar volume is 3.50, 77% predicted. In comparison to previous pre bronchodilator spirometry on 01/05/2023 the pre bronchodilator FVC is unchanged from 2.59 L to 2.50 L. The pre bronchodilator FEV1 is unchanged from 1.61 L to 1.57 L. Impression: There is a moderate obstructive abnormality. There is no significant improvement after inhaling a single dose of albuterol. The lung volumes are normal. The diffusing capacity unadjusted for hemoglobin and carboxyhemoglobin is mildly decreased and normalizes when adjusted for alveolar volume. In comparison to previous spirometry on 01/05/2023, there has been no significant change in the FVC or FEV1. Clinical correlation is recommended.
== END 2023-09-08 14:51 | disposition home or self-care (01) ==
LOC: ANHCARD 14:51
PROVIDERS: PCP Family Medicine; Visit Provider Internal Medicine Rheumatology
DX: J44.9 Chronic obstructive pulmonary disease, unspecified (principal); M47.896 Other spondylosis, lumbar region; I73.00 Raynaud's syndrome without gangrene; M34.9 Systemic sclerosis, unspecified; G89.29 Other chronic pain; M47.812 Spondylosis without myelopathy or radiculopathy, cervical region; M47.816 Spondylosis without myelopathy or radiculopathy, lumbar region
CPT/HCPCS: 94060; 94726; 94729

== ENCOUNTER 2023-11-10 15:44 | Outpatient (CLI) | payer MEDICARE, MEDICAID, SELFPAY ==
--- NOTE | ~2023-11-10 | CT_ITS ---
EXAMINATION:CT lung screening DATE: 11/10/2023 16:01 INDICATION: Personal history of nicotine dependence. Current smoker with 30 pack year history. TECHNIQUE: Computed tomography (CT) of the chest was performed without intravenous contrast. Automate d exposure control and iterative reconstruction technique were employed. The dose-length product (DLP ) was 211.93 mGy-cm. COMPARISON: Chest CT 10/20/2022 FINDINGS: There is mild emphysema. There is a 3 mm nodule in right upper lobe. There is mild atelecta sis bilaterally. No pleural effusion. The heart size is normal. There are coronary artery calcificati ons. No pericardial effusion. There is a small sliding hiatal hernia. There is a 2.2 cm mass in right adrenal gland measuring low attenuation, consistent with an adenoma. There is moderate thoracic spon dylosis. IMPRESSION: 1. Lung-RADS category 2: Benign appearance or behavior. Continue annual screening with noncontrast lo w-dose chest CT in 12 months. Reviewed, dictated and finalized at location A. IMPRESSION: 1. Lung-RADS category 2: Benign appearance or behavior. Continue annual screeni ng with noncontrast low-dose chest CT in 12 months.
== END 2023-11-10 15:45 | disposition home or self-care (01) ==
LOC: ANHIMG 15:48
PROVIDERS: PCP Family Medicine; Visit Provider Physician Assistant
DX: Z12.2 Encounter for screening for malignant neoplasm of respiratory organs (principal); Z87.891 Personal history of nicotine dependence
CPT/HCPCS: 71271

== ENCOUNTER 2024-05-10 16:22 | Outpatient (CLI) | payer MEDICARE, MEDICAID, SELFPAY ==
--- NOTE | ~2024-05-10 | MM_ITS ---
EXAMINATION: MM screening [facility] BI w link HISTORY: Screening mammogram TECHNIQUE: Craniocaudal and mediolateral oblique 3-D tomosynthesis images were obtained and synthetic 2-D images were generated. CAD analysis was submitted and interpreted. COMPARISON: 10/28/2022, 10/08/2021, 07/29/2018 BREAST PARENCHYMAL COMPOSITION:Not Dense. There are scattered areas of fibroglandular density. FINDINGS: No suspicious mass, calcification, or architectural distortion are identified in either jessica ast to suggest malignancy. There has been no suspicious interval change. IMPRESSION: No mammographic evidence of malignancy. Recommend routine screening mammography in one year. BI-RADS Category 1: Negative Reviewed, dictated and finalized at location .
--- OUTSIDE RECORDS SUMMARY | 2024-05-10 18:05 | XMS_ITS | Clinical Summary ---
Author Organization [facility] [employer] Address [address] [place] [address] [place] [address] Care Team Providers Care Casino Enforcement Agent Name Role Phone Andrew Perry MD Primary Care Provider Source Comments [facility] [employer],non-owned Affiliates and Associated Physician Practices is amultiple site organization consisting of ambulatory clinics and hospital sitesin [place], [place], [place] and [place]. This disclosure is being madepursuant to the Care Everywhere program and may not contain all informatio navailable regarding this patient. Last updated 17.[facility] [employer] Allergies No known active allergies Medications * Be aware that medications may not be up to date on this document. Alwaysverify current medications with the patient. Medication Sig Dispensed Refills Start Date End Date Status cycloSPORINE (RESTASIS) 0.05 % ophthalmic suspension Instill 1 (one) drop into both eyes BID 05/08/2016 Active refresh (LACRI-LUBE) opthalmic ointment Instill 1 Each into both eyes 2 times daily 11 09/28/2015 Active montelukast (SINGULAIR) 10 MG tablet Take 1 (one) tablet by mouth Active atorvastatin (LIPITOR) 20 MG tablet Take 1 (one) tablet by mouth Active cyclobenzaprine (FLEXERIL) 10 MG tablet Take 0.5 (one-half) tablet by mouth Active CPAP Inhale 1 device by mouth Active SYMBICORT 160-4.5 MCG/ACT inhaler Inhale 160 Disk by mouth 2 times daily 4 10/28/2017 Active vitamin D, ergocalciferol, (DRISDOL) 71743 UNITS capsule Take 1 (one) capsule by mouth every 7 days 12/07/2017 Active MEENAKSHI CONTOUR NEXT TEST test strip 11/30/2017 Active MICROLET LANCETS MISC 10/14/2017 Act louise albuterol HFA (PROVENTIL;VENTOLIN;P ROAIR) 108 (90 Base) MCG/ACT inhaler Inhale 2 (two) puffs by mouth every 6 hours as needed 11/03/2020 Active diazePAM (VALIUM) 2 MG tablet Take 1 (one) tablet by mouth 3 times daily as needed 09/24/2020 Active meloxicam (MOBIC) 15 MG tablet Take 1 (one) tablet by mouth once daily Active omeprazole (PRILOSEC) 20 MG capsule Take 2 (two) capsules by mouth daily before breakfast Active diclofenac sodium (VOLTAREN) 1 % gel Apply 2 (two) g to affected area 4 times daily 2 gm amount for elbow, wrist or hand 4 gm amount for knee, ankle or foot 100 g 5 05/22/2021 Active doxycycline monohydrate 100 MG tablet Take 1 (one) tablet by mouth once daily 12/19/2022 Active erythromycin (Romycin) 5 MG/GM ophthalmic ointment 01/02/2023 Activ e albuterol (Proventil;Ventolin) (2.5 MG/3ML) 0.083% nebulizer solution 2.5 (two and one-half) mg 4 times daily as needed 10/29/2022 Active fluticasone-salmetero l (Advair/Wixela) 250-50 MCG/ACT inhaler Inhale 1 (one) puff by mouth 2 times daily 04/17/2023 Active Miebo 1.338 GM/ML ophthalmic solution Instill 1 (one) drop into both eyes 4 times daily 11/12/2023 Active Active Problems Problem Noted Date Diagnosed Date Encounter for long-term (cur rent) use of high-risk medication 12/14/2017 Trigger thumb of right hand 10/16/2015 Raynaud's syndrome without gangrene 01/23/2015 Asymptomatic menopausal state 12/14/2014 Other specified disorders of bone density and structure, unspecified site 08/07/2014 Nicotine dependence, uncomplicated 08/07/2014 Calcinosis, Raynaud phenomen on, esophageal dysfunction, sclerodactyly, 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 (F LUZONE; FLULAVAL; FLUARIX; AFLURIA QUADRIVALENT; 6MO+), 0.5 ML (IIV4) 12/14/2017 Family History Medical History Relation Name Comments None Known Brother Other Father Nishant hameed; Status: Alive None Known Mother Status: Alive Relation Name Status Comments Brother Father Mother Social History Tobacco Use Types Packs/Day Years Used Date Smoking Tobacco: Every Day Cigarettes 0.5 40.2 Started: 02/28/1984 Smokeless Tobacco: Never Tobacco Cessation:Ready to Q uit: Not Asked; Counseling Given: Not Answered Alcohol Use Standard Drinks/Week Comments Yes 0.8 (1 standard drink = 0.6 oz p ure alcohol) rarely PHQ-2 Answer Date Recorded PHQ2 TOTAL SCORE 0 06/10/2022 Sex and Gender Information Value Date Recorded Sex Assigned at Not on file Gender Identity Not on file Sexual Orientation Not on file Last Filed Vital Signs Vital Sign Reading Time Taken Comments Blood Pressure 122/70 11/17/2023 3:54 PM CDT Pulse 97 11/17/2023 3:54 PM CDT Temperature 36.6 C (97.8 F) 11/17/2023 3:54 PM CDT Respiratory Rate 18 06/02/2016 1:13 PM CDT Oxygen Saturation 94% 11/17/2023 3:54 PM CDT Inhaled Oxygen Concentration - - Weight 85.5 kg (188 lb 9.6 oz) 11/17/2023 3:54 P M CDT Height 157.5 cm (5' 2 ) 11/17/2023 3:54 PM CDT Body Mass Index 34.5 11/17/2023 3:54 PM CDT Plan of Treatment Upcoming Encounters Date Type Department Care Team (Late st Contact Info) Description 08/02/2024 3:00 PM CDT Office Visit [facility] - Rheumatology [address] [place] [address], [facility] [place] [address] Jami Merino MD [address] [place] [id number] Health Maintenance Due Date Last Done Comments COLOGUARD (AGES 45-75) - COLON CA SCREENING 1964 COLON MONITORING 1964 COLONOSCOPY - COLON CA SCREENING 1964 CT COLONOGRAPHY - COLON CA SCREENING 1964 Colorectal Cancer Screening 1964 FIT - COLON CA SCREENING 1964 FLEX SIG - COLON CA SCREENING 1964 MAMMOGRAM 1964 MEDICARE AWV 12 MONTHS 1964 PAP SMEAR 1964 HIV SCREENING 12/31/1979 DTAP/TDAP/TD VACCINES (1 - Tdap) 12/31/1983 HEPATITIS B VACCINE (1 of 3 - 19+ 3-dose series) 12/31/1983 PNEUMOCOCCAL VACCINE 50+ (1 of 2 - PCV) 12/31/1983 ZOSTER VACCINE (1 of 2) 2014 COVID-19 VACCINE (3 - season) 2023 06/05/2020, 05/14/2020 INFLUENZA VACCINE (#1) 2023 12/14/2017, 2013 DEPRESSION SCREENING 03/02/2024 06/10/2022, 07/31/19 22 SCREENING FOR DIABETES 06/09/2025 3, 04/12/2020, 04/20/2019, Additional history exists HEPATITIS C SCREENING Completed 03/06/2014 HIB VACCINE Aged Out No longer eligi ble based on patient's age to complete this topic HPV VACCINE Aged Out No longer eligi ble based on patient's age to complete this topic MENINGOCOCCAL (Group B) VACCINE Aged Out No longer eligible based on patient's age to complete this topic MENINGOCOCCAL VACCINE Aged Out No mike shi eligible based on patient's age to complete this topic Procedures Procedure Name Priority Date/Time Associated Diagnosis Comments COMPREHENSIVE METABOLIC PANEL Routine 06/09/2022 2:30 PM CDT Scleroderma (HCC) Raynaud's syndrome without gangrene Encounter for therapeutic drug monitoring HEPATITIS C ANTIBODY Routine 03/06/2014 11:36 AM LIBRARY CATALOGING TECHNICIAN from Last 3 Months or Most Recently Relevant to Health Maintenance Results * (ABNORMAL) COMPREHENSIVE METABOLIC PANEL (06/09/2022 2:30 PM CDT) Glucose 103(H) 65 - 99 mg/dL [facility] Comment: Fasting reference interval For someone without known diabetes, a glucose value between 100 and 125 mg/dL is consistent with prediabetes and should be confirmed with a follow-up test. BUN 10 7 - 25 mg/dL [facility] Creatinine 0.58 0.50 - 1.03 mg/dL [facility] eGFR by Cystatin C 105 > OR = 60 mL/min/1. 73m2 [facility] Comment: The eGFR is based on the CKD-EPI 2020 equation. To calculate the new eGFR from a previous Creatinine or Cystatin C result, go to https://www.kidney.org/professionals/ kdoqi/gfr%5Fcalculator BUN/Creatinine Ratio NOT APPLICABLE 6 - 22 (calc) [facility] Sodium 141 135 - 146 mmol/L [facility] Potassium 3.7 3.5 - 5.3 mmol/L [facility] Chloride 105 98 - 110 mmol/L [facility] CO2 27 20 - 32 mmol/L [facility] Calcium 8.6 8.6 - 10.4 mg/dL [facility] Protein Total 6.2 6.1 - 8.1 g/dL [facility] Albumin 4.1 3.6 - 5.1 g/dL [facility] Globulin Total 2.1 1.9 - 3.7 g/dL (calc) [facility] Albumin/Globuli n Ratio 2.0 1.0 - 2.5 (calc) [facility] Bilirubin Total 0.3 0.2 - 1.2 mg/dL [facility] Alkaline Phosphatase 64 37 - 153 U/L [facility] AST 14 10 - 35 U/L [facility] ALT 17 6 - 29 U/L [facility] Comment: Test Performed at: [facility] [employer] [id number] [place] [address] GERTRUDE GILMORE MD Blood BLOOD SPECIMEN / Unknown 06/09/2022 2:30 PM CDT 06/09/2022 2:31 PM CDT Jami Merino MD LAB - CHEMISTR Y ORDERABLES [facility] [id number] [place] [address] * HEPATITIS C ANTIBODY (03/06/2014 11:36 AM LIBRARY CATALOGING TECHNICIAN) Hepatitis C Antibody NON-REACTI VE NON-REACT [facility] ([facility]) Signal/Cutoff 0.02 <1.00 [facility]) Comment: Test Performed at: [facility] [place] [id number] [place] [address] ASHLY ZAPATA DO,MPH Blood specimen (specimen) BLOOD SPECIMEN / Unknown 03/06/2014 11:36 AM LIBRARY CATALOGING TECHNICIAN 03/06/2014 11:38 AM LIBRARY CATALOGING TECHNICIAN Jami Merino MD LAB - CHEMISTR Y ORDERABLES [facility]) from Last 3 Months or Most Recently Relevant to Health Maintenance Care Teams Casino Enforcement Agent Relationship Specialty Start Date End Date Andrew Perry MD [address] [place] [address] PCP - General 02/27/14
--- OUTSIDE RECORDS SUMMARY | 2024-05-10 18:05 | XMS_ITS | Patient Health Summary ---
Author Organization [facility] Address [address] [place] [address] [place] [address] Care Team Providers Care Auto Servicer Name Role Phone Andrew Perry MD Primary Care Provider [phone] Note from Formerly named [facility],non-owned Affiliates and Associated Physician Practices is amultiple site organization consisting of ambulatory clinics and hospital sitesin [place], [place], [place] and [place]. This disclosure is being madepursuant to the Care Everywhere program and may not contain all information available regarding this patient. Last updated 17.[facility] Allergies No known active allergies Medications * Be aware that medications may not be up to date on this document. Alwaysverify current medications with the patient. * cycloSPORINE (RESTASIS) 0.05 % ophthalmic suspension(Started 05/08/2016) Instill 1 (one) drop into both eyes BID * refresh (LACRI-LUBE) opthalmic ointment(Started 09/28/2015) Instill 1 Each into both eyes 2 times daily 11 refills left * montelukast (SINGULAIR) 10 MG tablet Take 1 (one) tablet by mouth * atorvastatin (LIPITOR) 20 MG tablet Take 1 (one) tablet by mouth * cyclobenzaprine (FLEXERIL) 10 MG tablet Take 0.5 (one-half) tablet by mouth * CPAP Inhale 1 device by mouth * SYMBICORT 160-4.5 MCG/ACT inhaler(Started 10/28/2017) Inhale 160 Disk by mouth 2 times daily 4 refills left * vitamin D, ergocalciferol, (DRISDOL) 03282 UNITS capsule(Started 12/07/2017) Take 1 (one) capsule by mouth every 7 days * MEENAKSHI CONTOUR NEXT TEST test strip(Started 11/30/2017) * MICROLET LANCETS MISC(Started 10/14/2017) * albuterol HFA (PROVENTIL;VENTOLIN;PROAIR) 108 (90 Base) MCG/ACT inhaler (Started 11/03/2020) Inhale 2 (two) puffs by mouth every 6 hours as needed * diazePAM (VALIUM) 2 MG tablet(Started 09/24/2020) Take 1 (one) tablet by mouth 3 times daily as needed * meloxicam (MOBIC) 15 MG tablet Take 1 (one) tablet by mouth once daily * omeprazole (PRILOSEC) 20 MG capsule Take 2 (two) capsules by mouth daily before breakfast * diclofenac sodium (VOLTAREN) 1 % gel(Started 05/22/2021) Apply 2 (two) g to affected area 4 times daily 2 gm amount for elbow, wrist or hand 4 gm amount forknee, ankle or foot 5 refills by 05/22/2022 * doxycycline monohydrate 100 MG tablet(Started 12/19/2022) Take 1 (one) tablet by mouth once daily * erythromycin (Romycin) 5 MG/GM ophthalmic ointment(Started 01/02/2023) * albuterol (Proventil;Ventolin) (2.5 MG/3ML) 0.083% nebulizer solution(Started 10/29/2022) 2.5 (two and one-half) mg 4 times daily as needed * fluticasone-salmeterol (Advair/Wixela) 250-50 MCG/ACT inhaler(Started 04/17/2023) Inhale 1 (one) puff by mouth 2 times daily * Miebo 1.338 GM/ML ophthalmic solution(Started 11/12/2023) Instill 1 (one) drop into both eyes 4 times daily Active Problems Problem Noted Date Diagnosed Date [...] 02/27/2014 Arthralgia of temporomandibular joint 02/27/2014 Immunizations * INFLUENZA VACCINE, QUADR. (FLUZONE; FLULAVAL; FLUARIX; AFLURIA QUADRIVALENT; 6MO+), 0.5 ML (IIV4)(Given 12/14/2017) Social History Tobacco Use Types Packs/Day Years [...] Mass Index 34.5 11/17/2023 3:54 PM CDT Procedures * KIT BLOOD TITER(Performed 01/07/2023) * RNA POLYMERASE III ANTIBODY IGG(Performed 01/07/2023) * HISTONE ANTIBODY(Performed 01/07/2023) * SS-B (SJOGREN'S) ANTIBODY(Performed 01/07/2023) * SS-A (SJOGREN'S) ANTIBODY(Performed 01/07/2023) * GOLDBERG (SM) ANTIBODY RODRIGUEZ(Performed 01/07/2023) * CHROMATIN ANTIBODY(Performed 01/07/2023) * FIBER DRIER OPERATOR ANTIBODY(Performed 01/07/2023) * CENTROMERE B ANTIBODIES(Performed 01/07/2023) * SCLERODERMA 70 (SCL) ANTIBODY(Performed 01/07/2023) * COMPLEMENT TOTAL(Performed 01/07/2023) * COMPLEMENT C4(Performed 01/07/2023) * COMPLEMENT C3(Performed 01/07/2023) * KIT BLOOD SCREEN W/REFLEX TITER(Performed 01/07/2023) * DNA ANTIBODY DS CRITHIDIA W/REFLEX TITER(Performed 01/07/2023) * CBC W AUTO DIFFERENTIAL(Performed 06/09/2022) Performed for Scleroderma (HCC), Raynaud's syndrome without gangrene, Encounter for therapeutic drug monitoring * URINALYSIS W/MICROSCOPIC REFLEX TO CULTURE(Performed 06/09/2022) Performed for Scleroderma (HCC), Raynaud's syndrome without gangrene, Encounter for therapeutic drug monitoring * ERYTHROCYTE SEDIMENTATION RATE(Performed 06/09/2022) Performed for Scleroderma (HCC), Raynaud's syndrome without gangrene, Encounter for therapeutic drug monitoring * C-REACTIVE PROTEIN(Performed 06/09/2022) Performed for Scleroderma (HCC), Raynaud's syndrome without gangrene, Encounter for therapeutic drug monitoring * COMPREHENSIVE METABOLIC PANEL(Performed 06/09/2022) Performed for Scleroderma (HCC), Raynaud's syndrome without gangrene, Encounter for therapeutic drug monitoring * CULTURE URINE(Performed 06/09/2022) * CULTURE URINE REFLEXED II(Performed 06/09/2022) * AZ US GUIDED NEEDLE PLACEMENT(Performed 07/30/2021) Performed for De Quervain's tenosynovitis, right * AZ INJ TENDON SHEATH/LIGAMENT/APONEUROSIS(Performed 07/30/2021) Performed for De Quervain's tenosynovitis, right * PFT(Performed 07/05/2021) * CARDIAC ECHOCARDIOGRAM COMPLETE ORDER(Performed 02/13/2021) * IMAGING/RADIOLOGY/XRAY RESULTS ORDER(Performed 11/27/2020) * IMAGING/RADIOLOGY/XRAY RESULTS ORDER(Performed 11/23/2020) * IMAGING/RADIOLOGY/XRAY RESULTS ORDER(Performed 07/31/2020) * IMAGING/RADIOLOGY/XRAY RESULTS ORDER(Performed 07/19/2020) * C-REACTIVE PROTEIN(Performed 04/12/2020) * CBC W AUTO DIFFERENTIAL(Performed 04/12/2020) * URINALYSIS W/MICROSCOPIC REFLEX TO CULTURE(Performed 04/12/2020) * ERYTHROCYTE SEDIMENTATION RATE(Performed 04/12/2020) * COMPREHENSIVE METABOLIC PANEL(Performed 04/12/2020) * CULTURE URINE REFLEXED I(Performed 04/12/2020) * SS-B (SJOGREN'S) ANTIBODY(Performed 10/24/2019) * SS-A (SJOGREN'S) ANTIBODY(Performed 10/24/2019) * GOLDBERG (SM) ANTIBODY RODRIGUEZ(Performed 10/24/2019) * FIBER DRIER OPERATOR ANTIBODY(Performed 10/24/2019) * SCLERODERMA 70 (SCL) ANTIBODY(Performed 10/24/2019) * COMPLEMENT C4(Performed 10/24/2019) * COMPLEMENT C3(Performed 10/24/2019) * KIT BLOOD TITER(Performed 10/24/2019) * KIT BLOOD SCREEN W/REFLEX TITER(Performed 10/24/2019) * HISTONE ANTIBODY(Performed 10/24/2019) * DNA ANTIBODY DS CRITHIDIA W/REFLEX TITER(Performed 10/24/2019) * URINALYSIS W/MICROSCOPIC REFLEX TO CULTURE(Performed 04/20/2019) Performed for Osteopenia of spine, Scleroderma (HCC), Raynaud's syndrome without gangrene, Encounter for long-term (current) use of high-risk medication, Encounter for therapeutic drug monitoring * ERYTHROCYTE SEDIMENTATION RATE(Performed 04/20/2019) Performed for Osteopenia of spine, Scleroderma (HCC), Raynaud's syndrome without gangrene, Encounter for long-term (current) use of high-risk medication, Encounter for therapeutic drug monitoring * C-REACTIVE PROTEIN(Performed 04/20/2019) Performed for Osteopenia of spine, Scleroderma (HCC), Raynaud's syndrome without gangrene, Encounter for long-term (current) use of high-risk medication, Encounter for therapeutic drug monitoring * COMPREHENSIVE METABOLIC PANEL(Performed 04/20/2019) Performed for Osteopenia of spine, Scleroderma (HCC), Raynaud's syndrome without gangrene, Encounter for long-term (current) use of high-risk medication, Encounter for therapeutic drug monitoring * CBC W AUTO DIFFERENTIAL(Performed 04/20/2019) Performed for Osteopenia of spine, Scleroderma (HCC), Raynaud's syndrome without gangrene, Encounter for long-term (current) use of high-risk medication, Encounter for therapeutic drug monitoring * CULTURE URINE REFLEXED I(Performed 04/20/2019) * C-REACTIVE PROTEIN(Performed 09/18/2017) * CBC W/O DIFFERENTIAL(Performed 09/18/2017) * ERYTHROCYTE SEDIMENTATION RATE(Performed 09/18/2017) * URINALYSIS W/MICROSCOPIC NO CULTURE(Performed 09/18/2017) * COMPREHENSIVE METABOLIC PANEL(Performed 09/18/2017) * C-REACTIVE PROTEIN(Performed 01/30/2017) * URINALYSIS W/MICROSCOPIC NO CULTURE(Performed 01/30/2017) * CBC W/O DIFFERENTIAL(Performed 01/30/2017) * ERYTHROCYTE SEDIMENTATION RATE(Performed 01/30/2017) * COMPREHENSIVE METABOLIC PANEL(Performed 01/30/2017) * URINALYSIS W/MICROSCOPIC NO CULTURE(Performed 05/30/2016) * COMPREHENSIVE METABOLIC PANEL(Performed 05/30/2016) * C-REACTIVE PROTEIN(Performed 05/30/2016) * CBC W/O DIFFERENTIAL(Performed 05/30/2016) * ERYTHROCYTE SEDIMENTATION RATE(Performed 05/30/2016) * C-REACTIVE PROTEIN(Performed 09/27/2015) * CBC W/O DIFFERENTIAL(Performed 09/27/2015) * ERYTHROCYTE SEDIMENTATION RATE(Performed 09/27/2015) * URINALYSIS W/MICROSCOPIC NO CULTURE(Performed 09/27/2015) * COMPREHENSIVE METABOLIC PANEL(Performed 09/27/2015) * COMPREHENSIVE METABOLIC PANEL(Performed 01/19/2015) * LIPID PROFILE(Performed 01/19/2015) * C-REACTIVE PROTEIN(Performed 06/15/2014) * URINALYSIS W/MICROSCOPIC NO CULTURE(Performed 06/15/2014) * CBC W/O DIFFERENTIAL(Performed 06/15/2014) * ERYTHROCYTE SEDIMENTATION RATE(Performed 06/15/2014) * COMPREHENSIVE METABOLIC PANEL(Performed 06/15/2014) * HISTONE ANTIBODY(Performed 03/06/2014) * GOLDBERG (SM) ANTIBODY RODRIGUEZ(Performed 03/06/2014) * FIBER DRIER OPERATOR ANTIBODY(Performed 03/06/2014) * SS-A/SS-B (SJOGREN'S) ANTIBODY PANEL(Performed 03/06/2014) * SCLERODERMA 70 (SCL) ANTIBODY(Performed 03/06/2014) * CHROMATIN ANTIBODY(Performed 03/06/2014) * CENTROMERE B ANTIBODIES(Performed 03/06/2014) * COMPLEMENT TOTAL(Performed 03/06/2014) * COMPLEMENT C4(Performed 03/06/2014) * COMPLEMENT C3(Performed 03/06/2014) * DNA ANTIBODY DOUBLE STRANDED(Performed 03/06/2014) * KIT BLOOD SCREEN W/REFLEX TITER(Performed 03/06/2014) * VITAMIN D 25-HYDROXY D2+D3(Performed 03/06/2014) * HEPATITIS C ANTIBODY(Performed 03/06/2014) * CYCLIC CITRULLINATED PEPTIDE(CCP) AB IGG(Performed 03/06/2014) * RHEUMATOID FACTOR BLOOD QUANTITATIVE(Performed 03/06/2014) * HEPATITIS B SURFACE ANTIGEN W RFLX CONFIRMATION(Performed 03/06/2014) * T4 FREE(Performed 03/06/2014) * TSH(Performed 03/06/2014) * URIC ACID BLOOD(Performed 03/06/2014) * CK BLOOD(Performed 03/06/2014) * URINALYSIS W/MICROSCOPIC NO CULTURE(Performed 03/06/2014) * C-REACTIVE PROTEIN(Performed 03/06/2014) * ERYTHROCYTE SEDIMENTATION RATE(Performed 03/06/2014) * CBC W/O DIFFERENTIAL(Performed 03/06/2014) Results * DNA ANTIBODY DS CRITHIDIA W/REFLEX TITER (01/07/2023 2:43 PM ZIPPER SETTER) Only the most recent of2 resultswithin the time period is included. dsDNA Antibody Crithidia IFA NEGATIVE NEGATIVE [facility] Comment: Test Performed at: [facility] [address] [place] [address] JAXSON ACUNA MD,PHD,VIRGEN 01/07/2023 2:43 PM ZIPPER SETTER 01/07/2023 2:44 PM ZIPPER SETTER Jami Merino MD LAB - HEMATOLO GY ORDERABLES [facility] [address] [place] [address] * (ABNORMAL) CENTROMERE B ANTIBODIES (01/07/2023 2:43 PM ZIPPER SETTER) Only the most recent of2 resultswithin the time period is included. Centromere B Antibody >8.0 POS(A) <1.0 NEG AI [facility] Comment: Test Performed at: [facility] [address] [place] [address] GERTRUDE GILMORE MD 01/07/2023 2:43 PM ZIPPER SETTER 01/07/2023 2:44 PM ZIPPER SETTER Jami Merino MD LAB - SEROLOGY ORDERABLES Performing Organization Address [facility] Co de Phone Number [facility] [phone] [place] [address] * CHROMATIN ANTIBODY (01/07/2023 2:43 PM ZIPPER SETTER) Only the most recent of2 resultswithin the time period is included. Chromatin Nucleosomal Antibody <1.0 NEG <1.0 NEG AI [facility] Comment: Test Performed at: [facility] [address] [place] [address] GERTRUDE GILMORE MD 01/07/2023 2:43 PM ZIPPER SETTER 01/07/2023 2:44 PM ZIPPER SETTER Jami Merino MD LAB - SEROLOGY ORDERABLES Performing Organization Address [facility] [place] [address] * RNA POLYMERASE III ANTIBODY IGG (01/07/2023 2:43 PM ZIPPER SETTER) RNA Polymerase 3 Antibody <20 <20 Units [facility] Comment: Test Performed at: [facility] [address] [place] [address] JAXSON ACUNA MD,PHD,VIRGEN 01/07/2023 2:43 PM ZIPPER SETTER 01/07/2023 2:44 PM ZIPPER SETTER Jami Merino MD LAB - SEROLOGY ORDERABLES Performing Organization Address [facility] de Phone Number [place] [phone] * GOLDBERG (SM) ANTIBODY RODRIGUEZ (01/07/2023 2:43 PM ZIPPER SETTER) Only the most recent of3 resultswithin the time period is included. Pathologist [facility] SM Antibody <1.0 NEG <1.0 NEG AI [facility] Comment: Test Performed at: [facility] [address] [facility] [place] [address] GERTRUDE GILMORE MD 01/07/2023 2:43 PM ZIPPER SETTER 01/07/2023 2:44 PM ZIPPER SETTER Jami Merino MD LAB - CHEMISTR Y ORDERABLES Performing Organization Address [facility] [place] [address] * FIBER DRIER OPERATOR ANTIBODY (01/07/2023 2:43 PM ZIPPER SETTER) Only the most recent of3 resultswithin the time period is included. Pathologist [facility] FIBER DRIER OPERATOR Antibody <1.0 NEG <1.0 NEG AI [facility] Comment: Test Performed at: [facility] [address] [place] [address] GERTRUDE GILMORE MD 01/07/2023 2:43 PM ZIPPER SETTER 01/07/2023 2:44 PM ZIPPER SETTER Jami Merino MD LAB - CHEMISTR Y ORDERABLES Performing Organization Address [facility] [place] [address] * (ABNORMAL) KIT BLOOD TITER (01/07/2023 2:43 PM ZIPPER SETTER) Only the most recent of2 resultswithin the time period is included. KIT 1:40(H) titer [facility] Comment: A low level KIT titer may be present in pre-clinical autoimmune diseases and normal individuals. Reference Range <1:40 Negative 1:40-1:80 Low Antibody Level >1:80 Elevated Antibody Level KIT Pattern Nuclear, Speckled( A) [facility] Comment: Speckled pattern is associated with mixed connective tissue disease (MCTD), systemic lupus erythematosus (SLE), Sjogren's syndrome, dermatomyositis, and systemic sclerosis/polymyositis overlap. AC-2,4,5,29: Speckled International Consensus on KIT Patterns (https://doi.org/10.1515/iizn-9829-2826) KIT Titer 1:1280(H) titer [facility] Comment: Reference Range <1:40 Negative 1:40-1:80 Low Antibody Level >1:80 Elevated Antibody Level KIT Pattern Nuclear, Centromer e(A) [facility] Comment: Centromere pattern is associated with limited cutaneous systemic sclerosis, CREST (Calcinosis, Raynaud's, Esophageal dysmotility, Sclerodactyly, Telangiectasia), primary biliary cholangitis (PBC), and other autoimmune diseases. AC-3: Centromere International Consensus on KIT Patterns (https://doi.org/10.1515/xzey-9073-7098) Test Performed at: [place] [address] GERTRUDE GILMORE MD 01/07/2023 2:43 PM ZIPPER SETTER 01/07/2023 2:44 PM ZIPPER SETTER Jami Merino MD LAB - CHEMISTR Y ORDERABLES [place] [id number] [place] [address] * (ABNORMAL) KIT BLOOD SCREEN W/REFLEX TITER (01/07/2023 2:43 PM ZIPPER SETTER) Only the most recent of3 resultswithin the time period is included. KIT Screen POSITIVE( A) NEGATIVE [facility] Comment: KIT IFA is a first line screen for detecting the presence of up to approximately 150 autoantibodies in various autoimmune diseases. A positive KIT IFA result is suggestive of autoimmune disease and reflexes to titer and pattern. Further laboratory testing may be considered if clinically indicated. For additional information, please refer to http://education.AccessPay/faq/AVV751 (This link is being provided for informational/ educational purposes only.) Test Performed at: [place] [address] GERTRUDE GILMORE MD 01/07/2023 2:43 PM ZIPPER SETTER 01/07/2023 2:44 PM ZIPPER SETTER Jami Merino MD LAB - CHEMISTR Y ORDERABLES Performing Organization Address [facility] Co de Phone Number [facility] [phone] [place] [address] * HISTONE ANTIBODY (01/07/2023 2:43 PM ZIPPER SETTER) Only the most recent of3 resultswithin the time period is included. Pathologist [facility] Histone Antibodies <1.0 U [facility] Comment: Value Explanation of Results ------ <1.0 Negative 1.0-1.5 Weak Positive 1.6-2.5 Moderate Positive >2.5 Strong Positive Test Performed at: [facility] [place] [address] [place] [address] ASHLEY LARA 01/07/2023 2:43 PM ZIPPER SETTER 01/07/2023 2:44 PM ZIPPER SETTER Jami Merino MD LAB - CHEMISTR Y ORDERABLES Performing Organization Address [facility] Co de Phone Number [facility] [phone] [place] [address] * (ABNORMAL) COMPLEMENT TOTAL (01/07/2023 2:43 PM ZIPPER SETTER) Only the most recent of2 resultswithin the time period is included. Complement Total CH50 >60(H) 31 - 60 U/mL [facility] Comment: Test Performed at: [facility] [address] [place] [address] GERTRUDE GILMORE MD 01/07/2023 2:43 PM ZIPPER SETTER 01/07/2023 2:44 PM ZIPPER SETTER Jami Merino MD LAB - CHEMISTR Y ORDERABLES Performing Organization Address [facility] Co de Phone Number [facility] [address] [place] [address] * SS-B (SJOGREN'S) ANTIBODY (01/07/2023 2:43 PM ZIPPER SETTER) Only the most recent of2 resultswithin the time period is included. Sjogren's Antibodies (SSB) <1.0 NEG <1.0 NEG AI [facility] Comment: Test Performed at: [facility] [address] [facility] [place] [address] GERTRUDE GILMORE MD 01/07/2023 2:43 PM ZIPPER SETTER 01/07/2023 2:44 PM ZIPPER SETTER Jami Merino MD LAB - CHEMISTR Y ORDERABLES Performing Organization Address [facility] [place] [address] * SS-A (SJOGREN'S) ANTIBODY (01/07/2023 2:43 PM ZIPPER SETTER) Only the most recent of2 resultswithin the time period is included. Sjogren's Antibodies (SSA) <1.0 NEG <1.0 NEG AI [facility] Comment: Test Performed at: [facility] [facility] [place] [address] GERTRUDE GILMORE MD 01/07/2023 2:43 PM ZIPPER SETTER 01/07/2023 2:44 PM ZIPPER SETTER Jami Merino MD LAB - CHEMISTR Y ORDERABLES Performing Organization Address [facility] [place] [address] * SCLERODERMA 70 (SCL) ANTIBODY (01/07/2023 2:43 PM ZIPPER SETTER) Only the most recent of3 resultswithin the time period is included. SCL-70 Antibody <1.0 NEG <1.0 NEG AI [facility] Comment: Test Performed at: [facility] [address] [facility] [place] [address] GERTRUDE GILMORE MD 01/07/2023 2:43 PM ZIPPER SETTER 01/07/2023 2:44 PM ZIPPER SETTER Jami Merino MD LAB - CHEMISTR Y ORDERABLES Performing Organization Address [facility] Co de Phone Number [address] [address] * COMPLEMENT C4 (01/07/2023 2:43 PM ZIPPER SETTER) Only the most recent of3 resultswithin the time period is included. Complement C4 23 15 - 57 mg/dL [facility] Comment: Test Performed at: [facility] [place] [address] GERTRUDE GILMORE MD 01/07/2023 2:43 PM ZIPPER SETTER 01/07/2023 2:44 PM ZIPPER SETTER Jami Merino MD LAB - SEROLOGY ORDERABLES Performing Organization Address [facility] de Phone Number [address] [address] * COMPLEMENT C3 (01/07/2023 2:43 PM ZIPPER SETTER) Only the most recent of3 resultswithin the time period is included. Complement C3 128 83 - 193 mg/dL [facility] Comment: Test Performed at: [facility] [address] [facility] [place] [address] GERTRUDE GILMORE MD 01/07/2023 2:43 PM ZIPPER SETTER 01/07/2023 2:44 PM ZIPPER SETTER Jami Merino MD LAB - CHEMISTR Y ORDERABLES Performing Organization Address [facility] Co de Phone Number [address] [address] * CULTURE URINE REFLEXED II (06/09/2022 2:30 PM CDT) Reflexive Urine Culture See Below [facility] Comment: CULTURE INDICATED - RESULTS TO FOLLOW Test Performed at: [facility] [address] GERTRUDE GILMORE MD 06/09/2022 2:30 PM CDT 06/09/2022 2:31 PM CDT Jami Merino MD LAB - MICROBIO LOGY ORDERABLES Performing Organization Address [facility] Co de Phone Number [address] [address] * (ABNORMAL) URINALYSIS W/MICROSCOPIC REFLEX TO CULTURE (06/09/2022 2:30 PM CDT) Only the most recent of3 resultswithin the time period is included. Color UA YELLOW YELLOW [facility] Appearance CLOUDY(A) CLEAR [facility] Specific [place] UA 1.019 1.001 - 1.035 [facility] pH UA 6.0 5.0 - 8.0 [facility] Glucose UA NEGATIVE NEGATIVE [facility] Bilirubin UA NEGATIVE NEGATIVE [facility] Ketone UA NEGATIVE NEGATIVE [facility] Blood UA TRACE(A) NEGATIVE [facility] Protein UA NEGATIVE NEGATIVE [facility] Nitrite NEGATIVE NEGATIVE [facility] Leukocyte Esterase TRACE(A) NEGATIVE [facility] WBC UA 0-5 < OR = 5 /HPF [facility] RBC UA 0-2 < OR = 2 /HPF [facility] Epithelial Cell UA 10-20(A) < OR = 5 /HPF [facility] Bacteria UA NONE SEEN NONE SEEN /HPF [facility] Calcium Oxalate Crystals FEW NONE OR FEW /HPF [facility] Hyaline Casts NONE SEEN NONE SEEN /LPF [facility] Note See Below [facility] Comment: This urine was analyzed for the presence of WBC, RBC, bacteria, casts, and other formed elements. Only those elements seen were reported. Test Performed at: [facility] [address] GERTRUDE GILMORE MD Urine MID-STREAM URINE SPECIMEN / Unknown 06/09/2022 2:30 PM CDT 06/09/2022 2:31 PM CDT Jami Merino MD LAB - URINALYS IS ORDERABLES Performing Organization Address [facility] Co de Phone Number [address] [address] * C-REACTIVE PROTEIN (06/09/2022 2:30 PM CDT) Only the most recent of9 resultswithin the time period is included. C-Reactive Protein 7.6 <8.0 mg/L [facility] Comment: Test Performed at: [facility] [address] [place] [address] GERTRUDE GILMORE MD Blood BLOOD SPECIMEN / Unknown 06/09/2022 2:30 PM CDT 06/09/2022 2:31 PM CDT Jami Merino MD LAB - CHEMISTR Y ORDERABLES Performing Organization Address [facility] Co de Phone Number [address] [address] * CULTURE URINE (06/09/2022 2:30 PM CDT) Culture [facility] Comment: CULTURE, URINE, ROUTINE Micro Number: [id number] Test Status: Final Specimen Source: Urine Specimen Quality: Adequate Result: Mixed genital cody isolated. These superficial bacteria are not indicative of a urinary tract infection. No further organism identification is warranted on this specimen. If clinically indicated, recollect clean-catch, mid-stream urine and transfer immediately to Urine Culture Transport Tube. Test Performed at: [facility] [address] GERTRUDE GILMORE MD 06/09/2022 2:30 PM CDT 06/09/2022 2:31 PM CDT Jami Merino MD LAB - MICROBIO LOGY ORDERABLES Performing Organization Address [facility] Co de Phone Number [address] [address] * ERYTHROCYTE SEDIMENTATION RATE (06/09/2022 2:30 PM CDT) Only the most recent of9 resultswithin the time period is included. Erythrocyte Sedimentation Rate Westergren 2 < OR = 30 mm/h [facility] Comment: Test Performed at: [facility] [place] [address] [place] [address] GERTRUDE GILMORE MD Blood BLOOD SPECIMEN / Unknown 06/09/2022 2:30 PM CDT 06/09/2022 2:31 PM CDT Jami Merino MD LAB - HEMATOLO GY ORDERABLES Performing Organization Address [facility] Co de Phone Number [facility] [address] [place] [address] * (ABNORMAL) CBC WITH DIFFERENTIAL (06/09/2022 2:30 PM CDT) Only the most recent of3 resultswithin the time period is included. White Blood Cell Count 9.5 3.8 - 10.8 Thousand/ uL [facility] RBC 5.15(H) 3.80 - 5.10 Million/u L [facility] Hemoglobin 15.1 11.7 - 15.5 g/dL [facility] Hematocrit 45.9(H) 35.0 - 45.0 % [facility] MCV 89.1 80.0 - 100.0 fL [facility] MCH 29.3 27.0 - 33.0 pg [facility] MCHC 32.9 32.0 - 36.0 g/dL [facility] RDW 13.5 11.0 - 15.0 % [facility] Platelet Count 261 140 - 400 Thousand/ uL [facility] MPV 10.4 7.5 - 12.5 fL [facility] Neutrophil Absolute 6327 1500 - 7800 cells/uL [facility] Absolute Bands [facility] Metamyelocytes Absolute [facility] Myelocytes Absolute [facility] Absolute Prolymphocytes [facility] Lymphocytes Absolute 1663 850 - 3900 cells/uL [facility] Absolute Monocytes 1036(H) 200 - 950 cells/uL [facility] Eosinophils Absolute 437 15 - 500 cells/uL [facility] Basophils Absolute 38 0 - 200 cells/uL [facility] Absolute Blasts [facility] nRBC Absolute [facility] Granulocytes % 66.6 % [facility] Band Neutrophil [facility] Metamyelocytes [facility] Myelocytes [facility] Promyelocytes [facility] Lymphocytes % 17.5 % [facility] Lymphocyte Reactive [facility] Monocytes % 10.9 % [facility] Eosinophils % 4.6 % [facility] Basophils % 0.4 % [facility] Comment: Test Performed at: [facility] [address] [address] GERTRUDE GILMORE MD Blasts [facility] nRBC [facility] Comments [facility] Comment: Test Performed at: [facility] [address] [address] GERTRUDE GILMORE MD Blood BLOOD SPECIMEN / Unknown 06/09/2022 2:30 PM CDT 06/09/2022 2:31 PM CDT Jami Merino MD LAB - HEMATOLO GY ORDERABLES Performing Organization Address [facility] Co de Phone Number [facility] [address] [place] [address] * (ABNORMAL) COMPREHENSIVE METABOLIC PANEL (06/09/2022 2:30 PM CDT) Only the most recent of9 resultswithin the time period is included. Glucose 103(H) 65 - 99 mg/dL [facility] [...] 29 U/L [facility] Comment: Test Performed at: [facility] [employer] [address] [address] [address] GERTRUDE GILMORE MD Blood BLOOD SPECIMEN / Unknown 06/09/2022 2:30 PM CDT 06/09/2022 2:31 PM CDT Jami Merino MD LAB - CHEMISTR Y ORDERABLES [facility] [address] [place] [address] * [place] US GUIDED NEEDLE PLACEMENT (07/30/2021 2:32 PM CDT) Narrative Obi Michael MD - 07/30/2021 2:32 PM CDT Obi Michael MD 07/30/2021 2:32 PM (No note.) Obi Michael MD PROCEDURE/MINOR ROMERO RGICAL ORDERABLES * [place] INJ TENDON SHEATH/LIGAMENT/APONEUROSIS (07/30/2021 2:31 PM CDT) Narrative Obi Michael MD - 07/30/2021 2:31 PM CDT Obi Michael MD 07/30/2021 3:09 PM U/S-GUIDED INJECTION PROCEDURE NOTE Risks/benefits of injection discussed, including bleeding, infection, site reaction, and possible flare. Pt. Expresses understanding and verbally consents for injection. U/S used to visualize anatomic area first. Next area prepped with chloroprep in usual sterile fashion. Ethyl chloride for local anesthesia. 1 cc of 40 mg/mL Triamcinolone Acetonide + 1 cc of 1% lidocaine was injected into Right first dorsal compartment using a anterior to posterior approach under ultrasound guidance. Pt. Tolerated well. No complications. An ultrasound image was saved demonstrating the successful needle localization. Obi Michael MD PROCEDURE/MINOR ROMERO RGICAL ORDERABLES * PFT (07/05/2021) 07/05/2021 Narrative 07/05/2021 Ordered by an unspecified provider. Scanned Document SCANNING ONLY * CARDIAC ECHOCARDIOGRAM COMPLETE ORDER (02/13/2021) 02/13/2021 Narrative 02/13/2021 Ordered by an unspecified provider. Scanned Document ECHO ORDERABLES * IMAGING RADIOLOGY XRAY RESULTS ORDER (11/27/2020) Only the most recent of4 resultswithin the time period is included. Anatomical Region Laterality Modality Other 11/27/2020 Narrative 11/27/2020 Ordered by an unspecified provider. Scanned Document IMAGING * CULTURE URINE REFLEXED I (04/12/2020 1:18 PM ZIPPER SETTER) Only the most recent of2 resultswithin the time period is included. Reflexive Urine Culture See Below [facility] Comment: NO CULTURE INDICATED Test Performed at: [facility] [address] [place] [address] ASHLY ZAPATA DO,MPH 04/12/2020 1:18 PM ZIPPER SETTER 04/12/2020 1:19 PM ZIPPER SETTER Jami Merino MD LAB - MICROBIO LOGY ORDERABLES Performing Organization Address [facility] Co de Phone Number [facility] [address] [place] [address] * (ABNORMAL) URINALYSIS W/MICROSCOPIC NO CULTURE (09/18/2017 10:04 AM CDT) Only the most recent of6 resultswithin the time period is included. Color UA YELLOW YELLOW [facility] Appearance CLOUDY(A) CLEAR [facility] Specific [place] UA 1.011 1.001 - 1.035 [facility] pH UA 6.0 5.0 - 8.0 [facility] Glucose UA NEGATIVE NEGATIVE [facility] Bilirubin UA NEGATIVE NEGATIVE [facility] Ketone UA NEGATIVE NEGATIVE [facility] Blood UA NEGATIVE NEGATIVE [facility] Protein UA NEGATIVE NEGATIVE [facility] Nitrite UA NEGATIVE NEGATIVE [facility] Leukocyte UA NEGATIVE NEGATIVE [facility] WBC UA 0-5 < OR = 5 /HPF [facility] RBC UA NONE SEEN < OR = 2 /HPF [facility] Epithelial Cell UA 6-10(A) < OR = 5 /HPF [facility] Bacteria UA NONE SEEN NONE SEEN /HPF [facility] Hyaline Casts NONE SEEN NONE SEEN /LPF [facility] Comment: Test Performed at: [facility] [address] [address] ASHLY ZAPATA DO,MPH 09/18/2017 10:0 4 AM CDT 09/18/2017 10:05 AM CDT Jami Merino MD LAB - URINALYS IS ORDERABLES Performing Organization Address City/[facility]/ZIP Co de Phone Number [address] [address] * (ABNORMAL) CBC W/O DIFFERENTIAL (09/18/2017 10:04 AM CDT) Only the most recent of6 resultswithin the time period is included. Pathologist [facility] White Blood Cell Count 7.0 3.8 - 10.8 Thousand/ uL [facility] RBC 5.31(H) 3.80 - 5.10 Million/u L [facility] Hemoglobin 15.8(H) 11.7 - 15.5 g/dL [facility] Hematocrit 48.2(H) 35.0 - 45.0 % [facility] MCV 90.8 80.0 - 100.0 fL [facility] MCH 29.8 27.0 - 33.0 pg [facility] MCHC 32.8 32.0 - 36.0 g/dL [facility] RDW 13.1 11.0 - 15.0 % [facility] Platelet Count 269 140 - 400 Thousand/ uL [facility] MPV 10.4 7.5 - 12.5 fL [facility] Comment: Test Performed at: [facility] [address] GERTRUDE GILMORE MD 09/18/2017 10:0 4 AM CDT 09/18/2017 10:05 AM CDT Jami Merino MD LAB - HEMATOLO GY ORDERABLES Performing Organization Address City/State/[facility] Co de Phone Number [place] [phone] [place] [address] * LIPID PROFILE (01/19/2015 10:49 AM ZIPPER SETTER) [facility] Cholesterol Total 195 125 - 200 mg/dL [facility] ([facility]) HDL 61 > OR = 46 mg/dL [facility] ([facility]) Triglycerides 134 <150 mg/dL [facility] ([facility]) LDL Calculated 107 <130 mg/dL (calc) [facility] ([facility]) Comment: Desirable range <100 mg/dL for patients with CHD or diabetes and <70 mg/dL for diabetic patients with known heart disease. Chol/HDL Ratio 3.2 < OR = 5.0 (calc) [facility] ([facility]) Non HDL Cholesterol 134 mg/dL (calc) [facility] ([facility]) Comment: Target for non-HDL cholesterol is 30 mg/dL higher than LDL cholesterol target. Test Performed at: [facility] [place] [address] [facility] [place] [address] ASHLY ZAPATA DO,MPH 01/19/2015 10:4 9 AM ZIPPER SETTER 01/19/2015 10:52 AM ZIPPER SETTER Andrew Perry MD LAB - CHEMISTRY [place] Performing Organization Address City/[facility]/ZIP Co de Phone Number [facility] ([facility]) * (ABNORMAL) VITAMIN D 25-HYDROXY D2+D3 BY TANDEM MASS (03/06/2014 11:36 AM ZIPPER SETTER) Vitamin D, 25 Hydroxy Total 19(L) 30 - 100 ng/mL [facility] ([facility]) Comment: 25-OHD3 indicates both endogenous production and supplementation. 25-OHD2 is an indicator of exogenous sources, such as diet or supplementation. Therapy is based on measurement of Total 25-OHD, with levels <20 ng/mL indicative of Vitamin D deficiency, while levels between 20 ng/mL and 30 ng/mL suggest insufficiency. Optimal levels are > or = 30 ng/mL. Vitamin D, 25 Hydroxy D3 19 See Below ng/mL [facility] ([facility]) Comment:Reference Range: Not established Vitamin D, 25 Hydroxy D2 <4 See Below ng/mL [facility] ([facility]) Comment: Reference Range: Not established Test Performed at: [facility] [address] [address] MINDI ONEILL MD,[facility] Blood specimen (specimen) BLOOD SPECIMEN / Unknown 03/06/2014 11:36 AM ZIPPER SETTER 03/06/2014 11:38 AM ZIPPER SETTER Jami Merino MD LAB - CHEMISTR Y ORDERABLES [facility] ([facility]) * URIC ACID BLOOD (03/06/2014 11:36 AM ZIPPER SETTER) Pathologist [facility] Uric acid 3.2 2.5 - 7.0 mg/dL [facility] ([facility]) Comment: Therapeutic target for gout patients: <6.0 mg/dL Test Performed at: [facility] [address] [facility] [place] [address] ASHLY ZAPATA DO,MPH Blood specimen (specimen) BLOOD SPECIMEN / Unknown 03/06/2014 11:36 AM ZIPPER SETTER 03/06/2014 11:38 AM ZIPPER SETTER Jami Merino MD LAB - CHEMISTR Y ORDERABLES Performing Organization Address [facility] de Phone Number [facility] ([facility]) * RHEUMATOID FACTOR BLOOD QUANTITATIVE (03/06/2014 11:36 AM ZIPPER SETTER) Rheumatoid Factor 8 <14 IU/mL [facility] ([facility]) Comment: Test Performed at: [facility] [address] [place] [address] ASHLY ZAPATA DO,MPH Blood specimen (specimen) BLOOD SPECIMEN / Unknown 03/06/2014 11:36 AM ZIPPER SETTER 03/06/2014 11:38 AM ZIPPER SETTER Jami Merino MD LAB - CHEMISTR Y ORDERABLES Performing Organization Address [facility] Phone Number [facility] ([facility]) * SS-A/SS-B (SJOGRENS) ANTIBODY PANEL (03/06/2014 11:36 AM ZIPPER SETTER) Sjogren's Antibodies (SSA) <1.0 NEG <1.0 NEG AI [facility] ([facility]) Sjogren's Antibodies (SSB) <1.0 NEG <1.0 NEG AI [facility] ([facility]) Comment: Test Performed at: [facility] [address] [facility] [place] [address] ASHLY ZAPATA DO,MPH 03/06/2014 11:3 6 AM ZIPPER SETTER 03/06/2014 11:38 AM ZIPPER SETTER Jami Merino MD LAB - CHEMISTR Y ORDERABLES Performing Organization Address [facility] de Phone Number [facility] ([facility]) * DNA ANTIBODY DOUBLE STRANDED (03/06/2014 11:36 AM ZIPPER SETTER) dsDNA Antibody <1 IU/mL [facility] ([facility]) Comment: IU/mL Interpretation < or = 4 Negative 5-9 Indeterminate > or = 10 Positive Test Performed at: [facility] [place] [address] ASHLY ZAPATA DO,MPH Blood specimen (specimen) BLOOD SPECIMEN / Unknown 03/06/2014 11:36 AM ZIPPER SETTER 03/06/2014 11:38 AM ZIPPER SETTER Jami Merino MD LAB - HEMATOLO GY ORDERABLES Performing Organization Address [facility] Phone Number [facility] ([facility]) * CYCLIC CITRUL PEPTIDE AB IGG (CCP) (03/06/2014 11:36 AM ZIPPER SETTER) Cyclic Citrullinated Peptide Antibody <16 UNITS [facility] ([facility]) Comment: Reference Range Negative: <20 Weak Positive: 20-39 Moderate Positive: 40-59 Strong Positive: >59 Test Performed at: [facility] [place] [address] ASHLY ZAPATA DO,MPH Blood specimen (specimen) BLOOD SPECIMEN / Unknown 03/06/2014 11:36 AM ZIPPER SETTER 03/06/2014 11:38 AM ZIPPER SETTER Jami Merino MD LAB - CHEMISTR Y ORDERABLES Performing Organization Address [facility] Phone Number [facility] ([facility]) * HEPATITIS B SURFACE ANTIGEN W RFLX CONFIRMATION (03/06/2014 11:36 AM ZIPPER SETTER) Hepatitis B Virus Surface Antigen NON-REACTI VE NON-REACT NILAM [facility] ([facility]) Comment: Test Performed at: [place] [address] ASHLY ZAPATA DO,MPH Blood specimen (specimen) BLOOD SPECIMEN / Unknown 03/06/2014 11:36 AM ZIPPER SETTER 03/06/2014 11:38 AM ZIPPER SETTER Jami Merino MD LAB - CHEMISTR Y ORDERABLES Performing Organization Address [facility] Phone Number [facility] ([facility]) * CK BLOOD (03/06/2014 11:36 AM ZIPPER SETTER) Pathologist [facility] CK Total 63 29 - 143 U/L [facility] ([facility]) Comment: Test Performed at: [place] [address] ASHLY ZAPATA DO,MPH Blood specimen (specimen) BLOOD SPECIMEN / Unknown 03/06/2014 11:36 AM ZIPPER SETTER 03/06/2014 11:38 AM ZIPPER SETTER Jami Merino MD LAB - CHEMISTR Y ORDERABLES Performing Organization Address [facility] de Phone Number [facility] ([facility]) * TSH (03/06/2014 11:36 AM ZIPPER SETTER) Pathologist [facility] TSH 1.45 mIU/L [facility] ([facility]) Comment: Reference Range > or = 20 Years 0.40-4.50 Ranges First trimester 0.26-2.66 Second trimester 0.55-2.73 Third trimester 0.43-2.91 Test Performed at: [facility] [place] [address] ASHLY ZAPATA DO,MPH Blood specimen (specimen) BLOOD SPECIMEN / Unknown 03/06/2014 11:36 AM ZIPPER SETTER 03/06/2014 11:38 AM ZIPPER SETTER Jami Merino MD LAB - CHEMISTR Y ORDERABLES Performing Organization Address [facility] de Phone Number [facility] ([facility]) * T4 FREE (03/06/2014 11:36 AM ZIPPER SETTER) Pathologist [facility] T4 Free 1.1 0.8 - 1.8 ng/dL [facility] ([facility]) Comment: Test Performed at: [facility] [place] [address] ASHLY ZAPATA DO,MPH Blood specimen (specimen) BLOOD SPECIMEN / Unknown 03/06/2014 11:36 AM ZIPPER SETTER 03/06/2014 11:38 AM ZIPPER SETTER Jami Merino MD LAB - CHEMISTR Y ORDERABLES Performing Organization Address [facility]/ZIP Co de Phone Number [facility] ([facility]) * HEPATITIS C ANTIBODY (03/06/2014 11:36 AM ZIPPER SETTER) Hepatitis C Antibody NON-REACTI VE NON-REACT NILAM [facility] ([facility]) Signal/Cutoff 0.02 <1.00 [facility] ([facility]) Comment: Test Performed at: [facility] [address] [place] [address] ASHLY ZAPATA DO,MPH Blood specimen (specimen) BLOOD SPECIMEN / Unknown 03/06/2014 11:36 AM ZIPPER SETTER 03/06/2014 11:38 AM ZIPPER SETTER Jami Merino MD LAB - CHEMISTR Y ORDERABLES [facility] ([facility]) Care Teams Auto Servicer Relationship Specialty Start Date End Date Andrew Perry MD [address] [place] [address] PCP - General 02/27/14
--- OUTSIDE RECORDS SUMMARY | 2024-05-10 18:05 | XMS_ITS | Referral Summary ---
Author Organization [facility] Daily Pic Address [facility] [place] [address] Care Team Providers Care Brewer Helper Name Role Phone Andrew Perry MD Primary Care Provider [phone] Source Comments [facility] Daily Pic,non-owned Affiliates and Associated Physician Practices is amultiple site organization consisting of ambulatory clinics and hospital sitesin [place], [place], [place] and [place]. This disclosure is being madepursuant to the Care Everywhere program and may not contain all information available regarding this patient. Last updated 17.[facility] Daily Pic Allergies No known active allergies Medications * [...] 4 10/28/2017 Active vitamin D, ergocalciferol, (DRISDOL) [address]7520 UNITS capsule Take 1 (one) capsule by [...] AFLURIA QUADRIVALENT; 6MO+), 0.5 ML (IIV4) 12/14/2017 Social History Tobacco Use Types Packs/Day Years [...] Description 08/02/2024 3:00 PM CDT Office Visit [facility] - Rheumatology [address] [place] [address], [place] [phone] Jami Merino MD [address] [place] [address] [place] [id number] Procedures Procedure Name Priority Date/Time Associated Diagnosis Comments COMPREHENSIVE METABOLIC PANEL Routine 06/09/2022 2:30 PM CDT Scleroderma (HCC) Raynaud's syndrome without gangrene Encounter for therapeutic drug monitoring HEPATITIS C ANTIBODY Routine 03/06/2014 11:36 AM DRY BOX TENDER from Last 3 Months or Most Recently [...] 29 U/L [facility] Comment: Test Performed at: [facility] [address] [place] [address] GERTRUDE GILMORE MD Blood BLOOD SPECIMEN / Unknown 06/09/2022 2:30 PM CDT 06/09/2022 2:31 PM CDT Jami Merino MD LAB - CHEMISTR Y ORDERABLES [facility] [address] [place] [address] * HEPATITIS C ANTIBODY (03/06/2014 11:36 AM DRY BOX TENDER) Hepatitis C Antibody NON-REACTI VE NON-REACT LOUISE [facility] ([facility]) Signal/Cutoff 0.02 <1.00 [facility] ([facility]) Comment: Test Performed at: [facility] [address] [place] [address] ASHLY ZAPATA DO,MPH Blood specimen (specimen) BLOOD SPECIMEN / Unknown 03/06/2014 11:36 AM DRY BOX TENDER 03/06/2014 11:38 AM DRY BOX TENDER Jami Merino MD LAB - CHEMISTR Y ORDERABLES [facility] ([facility]) from Last 3 Months or Most Recently Relevant to Health Maintenance Care Teams Brewer Helper Relationship Specialty Start Date End Date Andrew Perry MD [address] [place] [address] PCP - General 02/27/14
--- OUTSIDE RECORDS SUMMARY | 2024-05-10 18:05 | XMS_ITS | Clinical Summary ---
Author Organization [facility] Address [address] [facility] [address] [place] [address] Phone Care Team Providers Care Stunner Animal Name Role Phone Andrew Perry MD Primary Care Provider [phone] Allergies No known active allergies Medications Meloxicam 15 MG Tablet Take 15 mg by mouth daily. Active omeprazole (PRILOSEC) 40 MG CAPSULE DELAYED RELEASE Take 40 mg by mouth daily. Active Montelukast Sodium (SINGULAIR PO) Take by mouth. Active budesonide-form oterol fumarate (SYMBICORT) 160-4.5 MCG/ACT Aerosol take 2 Puffs by inhalation 2 times daily. Active albuterol (PROVENTIL HFA) 108 (90 Base) MCG/ACT Aerosol Solution take 2 Puffs by inhalation every 4 hours as needed. Active diazePAM (VALIUM) 2 MG Tablet Take 2 mg by mouth every 8 hours as needed. Active ATORVASTATIN CALCIUM PO Take by mouth. Acti ve FENOFIBRATE PO Take by mouth. Active buPROPion (WELLBUTRIN) 75 MG Tablet Take 75 mg by mouth 3 times daily as needed. Active CycloSPORINE (RESTASIS OP) Place in affected eye(s). Active ergocalciferol (VITAMIN D) [address]3271 UNIT Capsule Take 50,000 Units by mouth. Active hydroxychloroqu ine (PLAQUENIL) 200 MG Tablet Take 400 mg by mouth daily. 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 MANAGER Gender Identity Not on file Sexual Orientation Not on file Plan of Treatment Health Maintenance Due Date Last Done Comments Hepatitis C Virus (HCV) Screening 1965 TdaP Immunization 1964 SARS-COV-2 Immunization (#1) 1969 Hepatitis B Immunization (1 of 3 - 19+ 3-dose series) 12/31/1983 Zoster Immunization (1 of 2) 12/31/1983 Pap Smear 1985 Cervical Cancer Screening (CCS) 1994 HPV/Cotest 1994 Colonoscopy 2009 Colorectal Cancer Screening 2009 Cologuard 2014 Immunochemical Fecal Occult Blood 2014 Mammogram 2014 Pneumococcal Immunization (5 0+ years) (1 of 1 - PCV) 2014 Influenza Immunization (#1) 2023 Respiratory Syncytial Virus (RSV) Immunization (Adult) (1 - 1-dose 75+ series) 12/31/2039 Meningococcal Immunization (ACWY) Aged Out No longer eligible based on patient's age to complete this topic Pneumococcal Immunization Combined Aged Out No longer eligible based on patient's age to complete this topic Rotavirus Immunization Aged Out No lo nger eligible based on patient's age to complete this topic Insurance MEDICAID [employer] Care Teams Stunner Animal Relationship Specialty Start Date End Date Andrew Perry MD [facility] [place] [id number] PCP - General Family Medicine 04/28/17
== END 2024-05-10 16:23 | disposition home or self-care (01) ==
PROVIDERS: PCP Family Medicine; Visit Provider Registered Nurse
DX: Z12.31 Encounter for screening mammogram for malignant neoplasm of breast (principal)
CPT/HCPCS: 77063; 77067

== ENCOUNTER 2025-02-06 15:17 | Outpatient (CLI) | payer MEDICARE, MEDICAID, SELFPAY ==
--- NOTE | ~2025-02-06 | CT_ITS ---
EXAMINATION:CT lung screening DATE: 02/06/2025 15:50 INDICATION: Screening TECHNIQUE: Computed tomography (CT) of the chest was performed without intravenous contrast. The dose-length product (DLP) was 129.75 mGy-cm. COMPARISON: November 10, 2023 FINDINGS: 4 mm right upper lobe subpleural nodule image 32 series 4 unchanged. Mild bibasilar fibrotic appearing changes similar. No gross acute interval change. No new nodules or masses. Heart and great vessels appear stable. No acute process seen in the visualized upper abdomen. 2 cm right adrenal adenoma stable. Cholecystectomy clips. Diffuse degenerative changes in the bones. IMPRESSION: 1. Stable exam. Lung RADS 2. Recommend correlation with follow-up low-dose lung cancer screening chest CT in 12 months. 2. Other findings as above. Reviewed, dictated and finalized at location A. LOCK ELASTIC ATTACHER
== END 2025-02-06 15:18 | disposition home or self-care (01) ==
PROVIDERS: PCP Family Medicine; Visit Provider Nurse Practitioner Family
DX: Z12.2 Encounter for screening for malignant neoplasm of respiratory organs (principal); Z87.891 Personal history of nicotine dependence
CPT/HCPCS: 71271